=== PATIENT | female | born 1990 | race Caucasian/White ===

== ENCOUNTER 2022-04-10 08:20 | Outpatient (CLI) | payer BC, SELFPAY ==
--- NOTE | 2022-04-10 08:15 | US_ITS ---
Final Report Patient: ATILIO FIELDS Facility:?[facility] Patient ID:?[id number] Site Patient ID:?[id number]. Site :?[id number] Study:?US OB Pelvis -04/10/2022 9:03:13 AM Ordering Physician:?PROVIDER [employer]Prateek Final Report: INDICATION: IVF, dating and viability. TECHNIQUE: Ultrasound OB pelvis transabdominal and transvaginal. Real-time modi-scale imaging of the pelvis was performed. COMPARISON: None. FINDINGS: There is a single intrauterine gestation. The embryo demonstrates a regular cardiac rate measuring 126 beats per minute. The embryo`s crown rump length measurement of 0.6 cm corresponds to a gestational age of 6 weeks 3 days with a sonographic due date of 12/01/2022. There is a normal appearing yolk sac measuring 2.6 mm. There are no gross abnormalities noted within the embryo at this early state of development. The placenta has not yet developed. There is no sign of perigestational hemorrhage. The ovaries are of normal size. There is a right uterine fundal fibroid measuring 1.1 x 1.0 x 0.7 cm. No free fluid in the pelvic cul-de-sac. IMPRESSION: 1. Single viable intrauterine with estimated gestational age of 6 weeks 3 day. 2. Uterine right fundal fibroid measuring 1.1 x 1.0 x 0.7. Dictated by Paulie Stephenson MD @ 04/10/2022 9:59:25 AM (Electronic Signature)
== END 2022-04-10 08:21 | disposition home or self-care (01) ==
LOC: US 08:20
PROVIDERS: Referring Provider Obstetrics & Gynecology Reproductive Endocrinology; Visit Provider Obstetrics & Gynecology Reproductive Endocrinology
DX: O09.811 Supervision of pregnancy resulting from assisted reproductive technology, first trimester (principal); Z3A.01 Less than 8 weeks gestation of pregnancy; O34.11 Maternal care for benign tumor of corpus uteri, first trimester; D25.9 Leiomyoma of uterus, unspecified
CPT/HCPCS: 76817

== ENCOUNTER 2022-04-26 14:51 | Outpatient (CLI) | payer BC, SELFPAY ==
--- NOTE | 2022-04-26 15:00 | CRLHL7_ITS ---
For Patients: As a result of the Cures Act, medical imaging exams and procedure reports are released immediately into your electronic medical record. You may view this report before your referring provider. If you have questions, please contact your health care provider. INDICATION: IVF TECHNIQUE: Ultrasound OB pelvis transvaginal. Real time modi scale imaging of the pelvis was performed. COMPARISON: 04/02/2022 FINDINGS: Sonographic imaging demonstrates a single living intrauterine gestation. The embryo demonstrates a regular cardiac rate measuring 176 beats per minute. The embryo`s crown rump length measurement of 2.3 cm corresponds to a gestational age of 9 weeks 0 days with a sonographic due date of 11/29/2022 . There is a normal appearing yolk sac. There are no gross abnormalities noted within the embryo at this early state of development. The placenta has not yet developed. The gestational sac has a normal appearance and there is no evidence of a perigestational hemorrhage. The amount of fluid within the sac appears appropriate for gestational age. The cervix is closed. 1.7 centimeter anterior right upper uterine segment fibroid. The ovaries are of normal size. There are no suspicious fluid collections noted in the cul-de-sac. IMPRESSION: Viable intrauterine . Gestational age calculated at 9 weeks 0 days with a sonographic due date of 11/29/2022. This compares to the gestational age by OPE of 8 weeks 5 days. No abnormalities seen. Dictated by Jatinder Rico MD @ 04/26/2022 4:21:42 PM (Electronically Signed)
== END 2022-04-26 14:52 | disposition home or self-care (01) ==
LOC: US 14:52
PROVIDERS: Visit Provider Obstetrics & Gynecology Reproductive Endocrinology
DX: O09.811 Supervision of pregnancy resulting from assisted reproductive technology, first trimester (principal); Z3A.09 9 weeks gestation of pregnancy
CPT/HCPCS: 76801

== ENCOUNTER 2022-05-10 14:15 | Outpatient (CLI) | payer BC, SELFPAY | END 2022-05-10 14:16 | disposition home or self-care (01) | LOC: NFLDREF 14:15 | PROVIDERS: Visit Provider Advanced Practice Midwife | DX: Z34.91 Encounter for supervision of normal pregnancy, unspecified, first trimester (principal); Z3A.10 10 weeks gestation of pregnancy | CPT/HCPCS: 87086 ==

== ENCOUNTER 2022-09-12 08:40 | Outpatient (CLI) | payer BC, SELFPAY ==
[2022-09-14 02:59] LABS: Rapid Plasma Reagin (RPR) Non Reactive (Non Reactive)
== END 2022-09-12 08:41 | disposition home or self-care (01) ==
LOC: FRMREF 08:41
PROVIDERS: Visit Provider Registered Nurse
DX: Z34.90 Encounter for supervision of normal pregnancy, unspecified, unspecified trimester (principal)
CPT/HCPCS: 86592

== ENCOUNTER 2022-10-10 08:16 | Outpatient (CLI) | payer BC, SELFPAY ==
--- NOTE | 2022-10-10 08:15 | CRLHL7_ITS ---
For Patients: As a result of the Century Cures Act, medical imaging exams and procedure reports are released immediately into your electronic medical record. You may view this report before your referring provider. If you have questions, please contact your health care provider. INDICATION: Third trimester scan, evaluate growth. Check weight. COMPARISON: 04/26/2022 TECHNIQUE: Real time modi scale imaging of the fetus was performed. FINDINGS: Sonographic imaging demonstrates a single living intrauterine gestation. Fetus demonstrates a regular cardiac rate of 148 beats per minute. Fetus has a vertex position. The placenta lies posteriorly. Amniotic fluid volume appears normal and there is a single deepest vertical pocket: 5.6 cm. The estimated weight is 1958gm which lies at the 33rd %. BPD 64th percentile. HC 36th percentile. AC 34th percentile. FL 29th percentile. The HC/AC ratio measures 1.08 range (0.96-1.12). IMPRESSION: Sonographic gestational age 32 weeks 5 days and sonographic due date 11/30/2022. Good correlation with dates. Normal interval growth. Estimated weight 33rd percentile. Abdominal circumference 34th percentile. Dictated by Jatinder Drake MD @ 10/10/2022 10:53:55 AM (Electronically Signed)
== END 2022-10-10 08:17 | disposition home or self-care (01) ==
LOC: US 08:17
PROVIDERS: Visit Provider Registered Nurse
DX: Z34.93 Encounter for supervision of normal pregnancy, unspecified, third trimester (principal); Z3A.32 32 weeks gestation of pregnancy
CPT/HCPCS: 76816

== ENCOUNTER 2022-10-23 09:46 | Outpatient (CLI) | payer BC, SELFPAY ==
[2022-10-23 11:01] LABS: Alanine Aminotransferase* 17 U/L (4-35); Aspartate Amino Transferase* 25 U/L (12-35); Blood Urea Nitrogen* 7 mg/dL (5-24); Creatinine* 0.7 mg/dL (0.5-1.5); Estimated Glomerular Filt Rate 117 ml/min
[2022-10-23 11:02] LABS: Uric Acid* 4.7 mg/dL (2.2-8.4)
[2022-10-23 11:13] LABS: Total Protein Urine 21 mg/dL
[2022-10-23 11:15] LABS: Creatinine Urine 90.6 mg/dL
== END 2022-10-23 09:47 | disposition home or self-care (01) ==
PROVIDERS: Visit Provider Obstetrics & Gynecology
DX: Z34.93 Encounter for supervision of normal pregnancy, unspecified, third trimester (principal); Z3A.34 34 weeks gestation of pregnancy
CPT/HCPCS: 82565; 82570; 84156; 84450; 84460; 84520; 84550

== ENCOUNTER 2022-10-25 08:13 | Outpatient (CLI) | payer BC, SELFPAY ==
--- NOTE | 2022-10-25 08:15 | CRLHL7_ITS ---
For Patients: As a result of the Century Cures Act, medical imaging exams and procedure reports are released immediately into your electronic medical record. You may view this report before your referring provider. If you have questions, please contact your health care provider. INDICATION: Gestational Hypertension COMPARISON: 10/10/2022 TECHNIQUE: Real time modi scale imaging of the fetus was performed. Without non-stress testing. FINDINGS: Sonographic imaging demonstrates a single living intrauterine gestation. Fetus demonstrates a regular cardiac rate of 145 beats per minute. Fetus has a vertex position. The amniotic fluid volume appears normal and there is a single deepest pocket measurement of 6.1 cm. The fetus was active and demonstrated normal breathing movements. There was normal flexion and extension of the trunk and extremities. IMPRESSION: Normal biophysical profile score of 8 out of 8. Dictated by Jatinder Drake MD @ 10/25/2022 9:55:00 AM (Electronically Signed)
== END 2022-10-25 08:14 | disposition home or self-care (01) ==
LOC: US 08:14
PROVIDERS: Visit Provider Obstetrics & Gynecology
DX: O13.9 Gestational [pregnancy-induced] hypertension without significant proteinuria, unspecified trimester (principal)
CPT/HCPCS: 76819

== ENCOUNTER 2022-10-29 08:14 | Outpatient (CLI) | payer BC, SELFPAY ==
[2022-10-29 09:30] LABS: Alanine Aminotransferase* 19 U/L (4-35); Aspartate Amino Transferase* 26 U/L (12-35); Creatinine* 0.6 mg/dL (0.5-1.5); Estimated Glomerular Filt Rate 121 ml/min
[2022-10-29 09:44] LABS: Total Protein Urine 14 mg/dL
[2022-10-29 09:48] LABS: Creatinine Urine 29.6 mg/dL
== END 2022-10-29 08:15 | disposition home or self-care (01) ==
LOC: NFLDREF 08:14
PROVIDERS: Visit Provider Obstetrics & Gynecology
DX: O13.3 Gestational [pregnancy-induced] hypertension without significant proteinuria, third trimester (principal)
CPT/HCPCS: 82565; 82570; 84156; 84450; 84460

== ENCOUNTER 2022-11-01 13:01 | Outpatient (CLI) | payer BC, SELFPAY ==
--- NOTE | 2022-11-01 13:00 | CRLHL7_ITS ---
For Patients: As a result of the Century Cures Act, medical imaging exams and procedure reports are released immediately into your electronic medical record. You may view this report before your referring provider. If you have questions, please contact your health care provider. INDICATION: GESTATIONAL HYPERTENSION COMPARISON: 10/25/2022 TECHNIQUE: Real time modi scale imaging of the fetus was performed. Without non-stress testing. FINDINGS: Sonographic imaging demonstrates a single living intrauterine gestation. Fetus demonstrates a regular cardiac rate of 163 beats per minute. Fetus has a vertex position. The amniotic fluid volume appears normal and there is a single deepest pocket measurement of 7.3 cm. The fetus was active and demonstrated normal breathing movements. There was normal flexion and extension of the trunk and extremities. IMPRESSION: Normal biophysical profile score of 8 out of 8. Dictated by Jatinder Drake MD @ 11/01/2022 2:48:03 PM (Electronically Signed)
== END 2022-11-01 13:02 | disposition home or self-care (01) ==
LOC: US 13:02
PROVIDERS: Visit Provider Obstetrics & Gynecology
DX: O13.9 Gestational [pregnancy-induced] hypertension without significant proteinuria, unspecified trimester (principal)
CPT/HCPCS: 76819; 87081; 87653

== ENCOUNTER 2022-11-05 08:00 | Outpatient (CLI) | payer BC, SELFPAY ==
[2022-11-05 10:08] LABS: Aspartate Amino Transferase* 33 U/L (12-35); Blood Urea Nitrogen* 8 mg/dL (5-24); Creatinine* 0.6 mg/dL (0.5-1.5); Estimated Glomerular Filt Rate 121 ml/min
[2022-11-05 10:16] LABS: Alanine Aminotransferase* 18 U/L (4-35)
== END 2022-11-05 08:01 | disposition home or self-care (01) ==
LOC: NFLDREF 08:00
PROVIDERS: Obstetrics & Gynecology; Visit Provider Obstetrics & Gynecology
DX: O13.3 Gestational [pregnancy-induced] hypertension without significant proteinuria, third trimester (principal)
CPT/HCPCS: 82565; 84450; 84460; 84520

== ENCOUNTER 2022-11-10 16:29 | Inpatient (IN) | payer BC, SELFPAY ==
[2022-11-10] VITALS (7 sets, daily range): BP systolic 136–140; BP diastolic 80–86; PULSE 81–91; TEMP 36.5; O2SAT 97–98
--- NOTE | 2022-11-10 16:44 | W.PM.LDBA ---
Subjective History of Present Illness Narrative: Patient is being admitted to Labor and Delivery for induction of labor. She is a 32 year old woman at 37 0/7 weeks gestation by IVF dating, PEDRO 12/01/22. H&P by [facility] on 11/08/2022. Specific Issues/Plans : [place] Baby: [place] Gender 1. IVF (r/t PCOS, problems w/ sperm). Taking baby aspirin Level II u/s w/ echo 08/03/2022: Normal echo and anatomy, EFW 73%, post. placenta w/o previa USN for EFW at 32 weeks: EFW 4 lb 5 oz (33%), BPD 64%, HC 36%, AC 34%, FL 29%, SDP 5.6 cm, vtx 2. Pre-eclampsia without severe features Dx with GHTN on 10/23 based on mild ranging BP and P/C of 0.2 PreE labs (10/23): within normal limits, P/C 0.2 PreE labs (10/29): pt rules in for PreE based on P/C ratio of 0.4 testing starting now: Alternating BPP and NST for twice weekly testing. PreE labs weekly BMTZ on 11/01 and 11/02/22. 11/08/22: Vtx. SDP: 4.9 cm. BPP 8/8. EFW 2912 g, 6 lb 7 oz, 44%. BPD 18%, HC 39%, AC 64%, FL 21%. Delivery: 37 weeks 2. Hx of breast augmentation 3. Social anxiety. Much improved w/ therapy 4. Covid positive 09/28/22, s/s 09/28/22, quarantine ends 10/08/22-does not effect next appt. COVID: fully vaccinated and boosted. FLU: Completed at work TDAP: September 26 2022 OB - Problem Based A/P Additional Plan (1) Pre-eclampsia affecting , antepartum: Status: Acute Plan: Stable blood pressures. Term . Unfavorable cervix. Reassuring status with category 1 tracing. Plan Cook catheter placed. Initial attempt was made with digital examination alone, but was unsuccessful. Catheter then was easily placed in aseptic technique using sterile speculum. Intrauterine and intravaginal balloons inflated to 50 mL. Begin Pitocin augmentation at low dose at midnight. Continue Cook catheter for 12 hours unless labor begins. Delivery/Labor/Induction Plan Induction method: Intracervical balloon catheter OB Exam Physical Exam Vital signs: Pulse Ox 98 11/10/22 16:42 Narrative: Physical exam: General: No acute distress Psych: Alert and oriented x3, full affect HEENT: Normocephalic, atraumatic Neck: No cervical adenopathy, no thyromegaly Heart: Regular rate and rhythm, no murmur rub or gallop Lungs: Clear to auscultation bilaterally Abdomen: Soft, nontender, gravid, cephalic lie Lower extremities: No edema or erythema Pelvic exam: Mons normal, clitoris normal, urethral meatus normal. Labia minora and majora normal in appearance bilaterally. Perineum and anus normal appearance. Vaginal introitus normal appearance. Vagina pink and well rugated with scant white discharge. Cervix pink and without lesion. Cervix 1 cm, long, high, posterior, moderate consistency tracing: Baseline 130, accelerations present, no decelerations, moderate variability. Reactive, reassuring NST.
[2022-11-10 17:58] LABS: Basophils Absolute Auto 0.03 K/uL (0.00-0.30); Basophils Percent Auto 0.3 % (0.0-3.0); Eosinophils Absolute Auto 0.07 K/uL (0.00-0.50); Eosinophils Percent Auto 0.7 % (0.0-7.0); Hematocrit 34.3 % (33.0-51.0); Hemoglobin* 12.2 gm/dL (12.0-16.0); Immature Granulocytes Abs Auto 0.05 K/uL (0.00-0.30); Immature Granulocytes Pct Auto 0.5 %; Lymphocytes Percent Auto 19.5 % (20-44); Mean Corpuscular HGB Conc 36 gm/dL (32-36); Mean Corpuscular Hemoglobin 32 pg (26-34); Mean Corpuscular Volume 89 fL (80-100); Monocytes Percent Auto 5.3 % (0.0-11.0); Neutrophils Percent Auto 73.7 % (42.0-72.0); Platelet Count* 174 K/uL (140-440); Red Blood Count 3.86 m/uL (4.00-5.20); Slide Review Reflex No; White Blood Count* 10.76 K/uL (4.50-11.00)
[2022-11-10 18:14] LABS: Alanine Aminotransferase* 18 U/L (4-35); Aspartate Amino Transferase* 21 U/L (12-35); Blood Urea Nitrogen* 8 mg/dL (5-24); Creatinine* 0.6 mg/dL (0.5-1.5); Estimated Glomerular Filt Rate 121 ml/min
[2022-11-10 18:15] LABS: Total Protein Urine 10 mg/dL
[2022-11-10 18:16] LABS: Creatinine Urine 104.5 mg/dL
[2022-11-10 18:37] LABS: SARS PCR* Negative SARS-CoV-2 (Negative)
[2022-11-10] MEDS: hydrOXYzine pamoate 25 MG CAPSULE 100 MG PO (20:39)
[2022-11-10] MEDS: MORPHINE 10 MG/ML inj IM (20:41)
[2022-11-11] VITALS (115 sets, daily range): BP systolic 101–175; BP diastolic 54–102; PULSE 67–112; RESP 16; TEMP 36.6–38.3; O2SAT 92–100; BMI 33.5
[2022-11-11] MEDS: LACTATED RINGERS 1000 ML 1,000 ML 124 ML IV (00:40)
[2022-11-11] MEDS: OXYTOCIN 30 unit/500 ML in NS 30 UNIT/500 ML BAG IVPB (00:41)
[2022-11-11] MEDS: LABETALOL HCL 5 MG/ML inj IVP (08:47)
[2022-11-11] MEDS: LACTATED RINGERS 1000 ML 1,000 ML 115 ML IV (09:15)
--- NOTE | 2022-11-11 09:16 | P.OBPN_ITS ---
Subjective Date Seen: 11/11/22 Narrative: Trinidad is a 32-year-old woman at 37 weeks, 1 day gestation here for induction of labor for indication of preeclampsia. She was without severe features at time of admission. Induction thus far has consisted of Cook catheter with low-dose Pitocin, which was taken off shortly after 8:00 a.m. on 11/11/2022. She continues on Pitocin. She reports not sleeping very well. Discomfort has improved since removal of Cook catheter. She just had 1 severe range blood pressure, and this was treated with labetalol. This is the only 1 within severe range since admission. Objective Exam: Physical exam: Vitals as noted above. General: No acute distress Psych: Alert and oriented x 3, full affect HEENT: Normocephalic, atraumatic Cervical exam: 4 cm, 80%,-2 in deviated to patient's left, soft, bulging bag of water. AROM for clear fluid. Vital Signs: Last Vital Signs Temp 98 F 11/11/22 07:22 Pulse 90 11/11/22 09:03 BP 127/89 11/11/22 09:03 Pulse Ox 97 11/10/22 19:51 Pelvic Exam Dilation (cm): 4 Effacement (%): 80 Station: -3 Contractions Monitor mode: External Contraction Frequency: Q 3 minutes Contraction pattern: Regular Assessment Assessment: early labor Status: Category l Heart Rate Baseline: 130 Director Industrial [employer] Variability: Moderate (6-25) Monitor Accelerations: Present Tracing Comments: Reassuring tracing Labor Progress: Progressing well through early labor, now with favorable cervix. Maternal Status: Still without diagnosis of severe preeclampsia, blood blood pressures have been increasing. Plan Plan: Continue Pitocin augmentation. If she experiences another severe elevation of blood pressure, we will begin magnesium sulfate for seizure prophylaxis. HELLP labs have been ordered. Continuous monitoring.
[2022-11-11 10:37] LABS: Hematocrit 35.1 % (33.0-51.0); Hemoglobin* 12.1 gm/dL (12.0-16.0); Mean Corpuscular HGB Conc 35 gm/dL (32-36); Mean Corpuscular Hemoglobin 31 pg (26-34); Mean Corpuscular Volume 90 fL (80-100); Platelet Count* 169 K/uL (140-440); Red Blood Count 3.92 m/uL (4.00-5.20); White Blood Count* 13.86 K/uL (4.50-11.00)
[2022-11-11 10:47] LABS: Slide Review Reflex No
[2022-11-11 11:25] LABS: Alanine Aminotransferase* 18 U/L (4-35); Aspartate Amino Transferase* 27 U/L (12-35); Blood Urea Nitrogen* 7 mg/dL (5-24); Creatinine* 0.7 mg/dL (0.5-1.5); Estimated Glomerular Filt Rate 117 ml/min
[2022-11-11] MEDS: ROPIVACAINE 0.2 % PF 10 ML INJ 20 MG EPIDURAL (13:17)
[2022-11-11] MEDS: LIDOCAINE 2% (PF) 5 ML VIAL EPIDURAL (13:17)
[2022-11-11] MEDS: ROPIVACAINE 0.2% 100 ml 100 ML 12 MG EPIDURAL ×2 (13:19→21:30)
--- NOTE | 2022-11-11 13:25 | PM.ANBPRC ---
[facility] Medical History (Updated 11/10/22 @ 20:29 by Amy Avery MD) Conceived by in vitro fertilization History of hysterosalpingogram History of migraine headaches Surgical History History of breast augmentation (2013) Family History Father Coronary artery disease Diabetes Aunt Diabetes Family/Other Diabetes Social History (Updated 05/10/22 @ 17:49 by Angela Trujillo CNM) Narrative: Non-smoker, quit 2020 - Ivan Smoking Status: Never smoker Do you use any of these nicotine containing products: Smokeless Tobacco Meds Home Medications and Allergies Home Medications Medication Instructions Recorded Confirmed Type aspirin 81 mg tablet,delayed 81 mg PO QDAY 05/10/22 11/10/22 History release omega 9-iaa-sdq-fish oil 100 cap PO 05/10/22 11/08/22 History mg-160 mg-1,000 mg capsule (Fish Oil) loratadine 10 mg tablet (Claritin) 10 mg PO QDAY 06/07/22 11/10/22 History 103-folic acid 400 tab PO 06/07/22 11/08/22 History mcg-omeg3 32.5 mg-dha-fish oil chew tablet ( with DHA and Folic Acid) Allergies Allergy/AdvReac Type Severity Reaction Status Date / Time No Known Allergies Allergy Unverified 11/08/22 15:49 Results Labs Labs: Laboratory Results - last 24 hr 11/10/22 11/10/22 11/10/22 17:39 17:43 17:43 WBC 10.76 RBC 3.86 L Hgb 12.2 Hct 34.3 MCV 89 MCH 32 MCHC 36 RDW Coeff of Domitila 13.0 Plt Count 174 Neut % (Auto) 73.7 H Lymph % (Auto) 19.5 L Phillips % (Auto) 5.3 Eos % (Auto) 0.7 Baso % (Auto) 0.3 Neut # (Auto) 7.90 H Lymph # (Auto) 2.10 Phillips # (Auto) 0.60 Eos # (Auto) 0.07 Baso # (Auto) 0.03 BUN Creatinine Estimated GFR AST ALT Urine Creatinine 104.5 Protein/Creatinin Ratio 0.00 Urine Total Protein 10 SARS-CoV-2 (PCR) Blood Type B Positive Antibody Screen NEGATIVE 11/10/22 11/10/22 11/11/22 17:43 17:58 10:31 WBC 13.86 H RBC 3.92 L Hgb 12.1 Hct 35.1 MCV 90 MCH 31 MCHC 35 RDW Coeff of Domitila Plt Count 169 Neut % (Auto) Lymph % (Auto) Phillips % (Auto) Eos % (Auto) Baso % (Auto) Neut # (Auto) Lymph # (Auto) Phillips # (Auto) Eos # (Auto) Baso # (Auto) BUN 8 Creatinine 0.6 Estimated GFR 121 AST 21 ALT 18 Urine Creatinine Protein/Creatinin Ratio Urine Total Protein SARS-CoV-2 (PCR) Negative SARS-CoV-2 Blood Type Antibody Screen 11/11/22 10:31 WBC RBC Hgb Hct MCV MCH MCHC RDW Coeff of Domitila Plt Count Neut % (Auto) Lymph % (Auto) Phillips % (Auto) Eos % (Auto) Baso % (Auto) Neut # (Auto) Lymph # (Auto) Phillips # (Auto) Eos # (Auto) Baso # (Auto) BUN 7 Creatinine 0.7 Estimated GFR 117 AST 27 ALT 18 Urine Creatinine Protein/Creatinin Ratio Urine Total Protein SARS-CoV-2 (PCR) Blood Type Antibody Screen Vital Signs Vital Signs: Last Vital Signs Temp 98.6 F 11/11/22 12:15 Pulse 84 11/11/22 13:23 BP 132/69 11/11/22 13:23 Pulse Ox 94 11/11/22 13:24 Weight: 94.432 kg Height: 162.56 cm Anesthesia Procedures Epidural Insertion Patient Location: OB Start Time: 12:45 Stop Time: 13:26 Start Date: 11/11/22 Stop Date: 11/11/22 Reason for Block: procedure for pain Patient Position: sitting Performed By: Sang Dennis Preanesthetic Checklist: IV checked, risks and benefits discussed, surgical consent, monitors and equipment checked, pre-op evaluation, timeout performed and anesthesia consent Prep: chlorhexidine gluconate Monitoring: blood pressure monitoring, continuous pulse oximetry and heart rate Approach: midline Vertebral Space: lumbar (1-5) Epidural Technique: LYNNE air Needle Type: Tuohy needle Injection Technique: continuous catheter Needle gauge: 17 Needle Length (cm): 10 cm Needle Insertion Depth (cm): 7 Catheter Gauge: 19 Catheter Type: multi-orifice Catheter at skin depth (cm): 13 Test Dose Result: negative and lidocaine 1.5% with epinephrine 1 to 200,000
[2022-11-11] MEDS: ONDANSETRON 2 MG/ML inj 4 MG IV (18:03)
--- NOTE | 2022-11-11 18:30 | P.OBPN_ITS ---
Subjective Time Seen by Provider: 16:00 Date Seen: 11/11/22 Narrative: Trinidad is a 32-year-old woman at 37 weeks, 1 day gestation here for induction of labor for indication of preeclampsia. She was without severe features at time of admission. Induction thus far has consisted of Cook catheter with low-dose Pitocin, which was taken off shortly after 8:00 a.m. on 11/11/2022. She had AROM for clear fluid around 0900. She continues on Pitocin. She has had epidural since my last exam. RN reports that she is sluggish and perhaps feeling a little warm. Objective Exam: Physical exam: Vitals as noted above. General: No acute distress, shivering a little Psych: appears sleepy, responds to questions HEENT: Normocephalic, atraumatic Vital Signs: Last Vital Signs Temp 99.1 F 11/11/22 17:30 Pulse 81 11/11/22 18:03 BP 101/61 11/11/22 18:03 Pulse Ox 99 11/11/22 18:28 Pelvic Exam Dilation (cm): 8 Effacement (%): 100 Station: 0 Comments: deviated to patient's left Contractions Monitor mode: External Contraction Frequency: uncertain Pitocin Rate (mU/min): 20 Assessment Assessment: active labor Status: Category l Heart Rate Baseline: 150 [employer] Supervisor Variability: Moderate (6-25) Monitor Accelerations: Present Tracing Comments: Reassuring tracing Labor Progress: Transitional phase of active labor. Maternal Status: Still without diagnosis of severe preeclampsia; normal BP since epidural and normal HELLP labs this AM. Temperatures still within normal range. Increasing baseline. Plan Plan: Continue Pitocin augmentation. Repeat exam in 2 hours. If she experiences another severe elevation of blood pressure, we will begin magnesium sulfate for seizure prophylaxis. With elevated temperature, will treat empiricaly for chorioamnionitis. Continuous monitoring.
[2022-11-12] VITALS (42 sets, daily range): BP systolic 97–156; BP diastolic 61–86; PULSE 68–95; RESP 14–17; TEMP 36.3–37; O2SAT 95–99
[2022-11-12] MEDS: LACTATED RINGERS 1000 ML 1,000 ML 999 ML IV ×2 (00:58→05:35)
--- NOTE | 2022-11-12 01:08 | PM.OBPNL ---
Subjective Time Seen by Provider: 01:08 Date Seen: 11/12/22 Narrative: Trinidad is a 32-year-old woman at 37 weeks, 2 days gestation here for induction of labor for indication of preeclampsia. She was without severe features at time of admission. Induction thus far has consisted of Cook catheter with low-dose Pitocin, which was taken off shortly after 8:00 a.m. on 11/11/2022. She had AROM for clear fluid around 0900. She continues on Pitocin. She has had epidural. She has been pushing since between 930 and 10:00 p.m.. Objective Exam: Physical exam: Vitals as noted above. General: Appears tired and pained HEENT: Normocephalic, atraumatic Vital Signs: Last Vital Signs Temp 98.6 F 11/11/22 19:41 Pulse 87 11/12/22 01:03 Resp 16 11/11/22 19:41 BP 124/67 11/12/22 01:03 Pulse Ox 100 11/11/22 20:08 Pelvic Exam Dilation (cm): 10 Effacement (%): 100 Station: +2 Comments: Adequate pelvis. Suspect OA orientation, consistent with ultrasound at bedside. Contractions Monitor mode: External Contraction Frequency: uncertain Contraction pattern: Regular Pitocin Rate (mU/min): 20 Assessment Assessment: other (Arrest of descent) Station: +2 Status: Category l Heart Rate Baseline: 140 Fci Variability: Moderate (6-25) Monitor Accelerations: Present Tracing Comments: Reassuring tracing Labor Progress: Arrest of descent Maternal Status: Preeclampsia without severe features; normal BP since epidural and normal HELLP labs this AM. Plan Plan: We discussed options, including continued pushing efforts, vacuum assisted vaginal delivery, and primary . Of these, she prefers delivery. We discussed risks of , including bleeding/hemorrhage with risk of blood transfusion, infection in uterus, pelvis, or incision, damage to internal organs, including cervical laceration, uterine scarring and effect on future pregnancies, thromboembolism, and the likely postoperative restrictions and precautions. We discussed likely differences in recovery. Consent form was reviewed with and signed by patient. Start Pitocin augmentation now. Cefazolin 2 g and azithromycin 500 mg IV for preoperative prophylaxis.
[2022-11-12] MEDS: AZITHROMYCIN 500 MG in 0.9 % SODIUM CHLORIDE 250 ml 250 ML 255 MG IVPB (01:10)
[2022-11-12] MEDS: CEFAZOLIN 2 GM INJ IVP (01:55)
--- NOTE | 2022-11-12 02:32 | SUR.OPER ---
PATIENT BROUGHT TO OR #5 PER CART.? Patient positioned supine on OR #5 bed.? The perioperative?team supported arms bilaterally on arm boards. Final approval of positioning by surgeon. PT. COMES INTO OR #5 WITH A PATENT VEGAS CATHETER ALREADY IN PLACE FROM OB FLOOR.
--- NOTE | 2022-11-12 02:54 | PM.OBPRCCS ---
Procedure Pre-op/Post-op diagnoses: Pre-Op/Post-Op Diagnoses Operation Date: 11/12/22 02:15 <No data on this case meets the specified criteria> Procedure Done: Global Procedure Details: Procedures Operation Date: 11/12/22 02:15 Actual Procedure Side Surgeon p Section Amy Avery MD Narrative: PREOPERATIVE DIAGNOSIS: 37 weeks, 2 days gestation Preeclampsia without severe features Arrest of descent POSTOPERATIVE DIAGNOSIS: 37 weeks, 2 days gestation Preeclampsia without severe features Arrest of descent PROCEDURE: Primary low-transverse section SURGEON: Amy Avery MD ANESTHESIA: Epidural IV FLUIDS: 700 mL crystalloid QBL: 703 mL FINDINGS: 1. Male , cephalic 0P presentation, Apgars of 9 and 9, weight pending at time of this dictation 2. Normal appearance to uterus, bilateral tubes and ovaries. COMPLICATIONS: None PROCEDURE IN DETAIL: Patient was taken to the operating room with IV running. She received cefazolin in preoperative prophylaxis. Epidural anesthesia had previously been administered. Vaginal exam was performed, and head was manually elevated upward in the patient's pelvis. Becerril catheter was previously inserted. She was prepped and draped in the usual sterile fashion. Anesthesia was tested and found to be adequate. A low-transverse skin incision was made with a scalpel and carried through to the underlying layer of fascia with the scalpel. Incision was widened bluntly. The fascia was nicked in the midline with a scalpel, and this incision was extended laterally with scissors. The rectus muscles were in the midline and were slightly dissected off the superior edge the incision sharply.. Peritoneum was identified and entered bluntly. Scissors was used to widen this opening laterally. Bro O retractor was inserted and tightened down, providing excellent visualization of the lower uterine segment. The bladder reflection was found to be well below the planned site for hysterotomy. Low-transverse uterine incision was made with a scalpel. Incision was widened bluntly. The 's head was grasped through the hysterotomy and delivered with the help of fundal pressure. The remainder of the body delivered without incident. Cord was clamped and cut after 30 seconds. was handed off to attending nurses. The placenta was delivered with gentle traction on the cord. The uterus was cleaned of all clots and debris with the dry lap pad. There was a hysterotomy extension downward on the patient's right side. The edges of this were grasped with a ring forcep and this was reapproximated with 0 Vicryl in a running fashion, followed by the remainder of the hysterotomy. The majority of the hysterotomy required imbricating sutures of 0 Vicryl to obtain hemostasis. The uterus was exteriorized for portions of this hysterotomy repair. The adnexa were examined and noted to be normal in appearance. The uterus was returned to the abdomen. The Bro O retractor was removed. The hysterotomy was reexamined and additional [id number]-lv-[id number] sutures were used to obtain hemostasis in the midportion of the hysterotomy. [place] hemostatic agent was a applied over the lower uterine segment and over the hysterotomy extension. The peritoneum was reapproximated with 2 0 Vicryl in a running fashion. The rectus muscles were examined and found to be hemostatic. The fascia was reapproximated with 0 Vicryl in a running fashion. Subcutaneous fat was irrigated and Bovie used on oozing vessels. The subcutaneous fat was reapproximated with 2 0 plain gut suture in an interrupted fashion. The skin was closed with a subcuticular stitch of 4-0 Monocryl. Surgical glue was applied above this. Patient tolerated procedure well was taken to recovery area in stable condition.
[2022-11-12] MEDS: LACTATED RINGERS 1000 ML 1,000 ML 125 ML IV (03:10)
--- NOTE | 2022-11-12 03:12 | W.ANESCHARGE ---
Anesthesia Charges Start Date/Time Anesthesia Start Date: 11/12/22 Anesthesia Start Time: 01:42 Stop Date/Time Anesthesia Stop Date: 11/12/22 Anesthesia Stop Time: 03:09 Summary Emergency: Yes
[2022-11-12] MEDS: ACETAMINOPHEN 500 MG TABLET 1000 MG PO (05:51)
[2022-11-12 07:40] LABS: Alanine Aminotransferase* 16 U/L (4-35); Aspartate Amino Transferase* 24 U/L (12-35); Blood Urea Nitrogen* 8 mg/dL (5-24)
[2022-11-12 07:55] LABS: Creatinine* 0.6 mg/dL (0.5-1.5); Est. Creatinine Clearance* 124.85; Estimated Glomerular Filt Rate 121 ml/min
[2022-11-12] MEDS: KETOROLAC 30 MG/ML inj IVP ×3 (08:13→20:34)
[2022-11-12] MEDS: DOCUSATE SODIUM 100 MG CAPSULE PO (08:26)
[2022-11-12 09:57] LABS: Hematocrit 28.1 % (33.0-51.0); Hemoglobin* 9.6 gm/dL (12.0-16.0); Mean Corpuscular HGB Conc 34 gm/dL (32-36); Mean Corpuscular Hemoglobin 31 pg (26-34); Mean Corpuscular Volume 92 fL (80-100); Platelet Count* 157 K/uL (140-440); Red Blood Count 3.07 m/uL (4.00-5.20)
[2022-11-12 10:35] LABS: Slide Review Reflex Yes; White Blood Count* 26.78 K/uL (4.50-11.00)
[2022-11-12 10:36] LABS: Slide Review Acceptable Review (Acceptable)
[2022-11-13] VITALS (9 sets, daily range): BP systolic 115–135; BP diastolic 76–89; PULSE 77–97; RESP 14–16; TEMP 36.5–36.8; O2SAT 96–98
[2022-11-13] MEDS: KETOROLAC 30 MG/ML inj IVP ×2 (02:41→08:06)
[2022-11-13 05:23] LABS: Hemoglobin* 8.3 gm/dL (12.0-16.0)
[2022-11-13] MEDS: FERROUS SULFATE 325 MG TABLET PO (08:06)
[2022-11-13] MEDS: DOCUSATE SODIUM 100 MG CAPSULE PO (08:06)
--- NOTE | 2022-11-13 09:40 | P.OBPN_ITS ---
OB - PN: A/P Assessment and Plan (1) Pre-eclampsia affecting , antepartum: Status: Acute (2) Status post delivery: Status: Acute (3) state: Status: Acute (4) Lactating mother: Status: Acute (5) Acute anemia: Status: Acute Plan Assessment/Plan G 1 P 1 status post uncomplicated primary . Lactating Mother Acute Anemia Pre-eclampsia with out severe features 1. ?Continue routine PP cares 2. ?. ?May see if desired 3. ?Anticipate discharge home tomorrow 4. ?Acute anemia. ?Iron supplement ordered 5. Continue to monitor blood pressures and for signs/symptoms of severe pre-e clampsia. Return to clinic in 1 week after discharge for blood pressure check. Plan day: 1 Plan: routine postop care OB - PN: Subj Subjective Time Seen by Provider: 09:40 Date Seen: 11/13/22 Interval history: Subjective: Trinidad is a 32 y.o. G1 now P1 who was admitted to [facility] & [facility] for IOL r/t pre-eclampsia with out severe features. ?She had an uncomplicated after arrest of descent.. ? The patient feels well. ?The pain is well controlled with current medications. ?She has no new complaints. ?She is breast feeding and reports things are going well.? the patient has done well.? Vitals have been stable and blood pressures have been with in normal limits.? She has remained afebrile.? Has a go od appetite, is tolerating a general diet. ?She is voiding without difficulty.? She is passing gas and has not had a bowel movement.? She is ambulating and denies any dizziness.? Has Small amount of rubra lochia with only occasional small clots.??At time of visit, Trinidad sitting upright in the chair feeding her baby boy with her supportive at bedside. RN confirmed regular heart rate and rhythm, lungs clear to auscultation bilaterally, uterus firm, 1 below umbilicus, and dressing dry and intact. Trinidad requested to have dressing removed after she gets up for her shower today. She has been taking iron supplements today and is asymptomatic for anemia, no dizziness, lightheadedness, nausea or shortness of breath. She hopes to go home tomorrow morning if possible. Patient comments: no complaints, pain well controlled, tolerating diet and flatus present [place] infant status: and doing well [place] feeding status: exclusively OB - PN: Obj Exam Physical Exam: Vital signs: Temp Pulse Resp BP Pulse Ox O2 Del Method 98.0 F 87 16 134/88 98 11/13/22 08:10 11/13/22 08:10 11/13/22 08:10 11/13/22 08:10 11/13/22 08:10 11/13/22 08:10 Narrative: Objective: VSS. ?Afebrile GENERAL APPEARANCE: ?normal affect, alert, no distress MOOD: ?appropriate HEENT: normocephalic, neck supple, full ROM CHEST: ?Symmetrical chest wall movement. ?Normal respiratory effort. ?Clear to auscultation per CONVERTER SUPERVISOR: ?regular rate and rhythm Per RN ABDOMEN: ?soft, non-tender. Uterine fundus is firm, 1 under Umbilicus, Midline and is appropriate for the stage of recovery. ?Bowel sounds present. per RN EXTREMITIES: ?normal and no edema SKIN: warm, dry. ?Dressing on. ?No signs of infection noted. per RN Urinary Catheter Management: Urethral: Cath placed during this visit: yes, but has since been removed by the nurse Reason for continuing: not indwelling catheter Insertion date: 11/11/22 Removal date: 11/12/22 Removal time: 14:50 OB - PN: Obj Data Labs Labs: Laboratory Results - last 24 hr 11/12/22 11/13/22 07:09 05:20 WBC 26.78 H* RBC 3.07 L Hgb 9.6 L 8.3 L Hct 28.1 L MCV 92 MCH 31 MCHC 34 Plt Count 157 Diff Slide Review Acceptable Review
[2022-11-13] MEDS: ACETAMINOPHEN 500 MG TABLET 1000 MG PO ×2 (11:53→17:53)
[2022-11-13] MEDS: IBUPROFEN 600 MG TABLET PO ×2 (15:06→20:42)
[2022-11-14] MEDS: ACETAMINOPHEN 500 MG TABLET 1000 MG PO ×2 (00:10→05:59)
[2022-11-14] MEDS: IBUPROFEN 600 MG TABLET PO ×2 (03:28→08:55)
[2022-11-14 03:33] VITALS: BP 132/88
[2022-11-14 07:31] LABS: Basophils Absolute Auto 0.02 K/uL (0.00-0.30); Basophils Percent Auto 0.2 % (0.0-3.0); Eosinophils Absolute Auto 0.16 K/uL (0.00-0.50); Eosinophils Percent Auto 1.6 % (0.0-7.0); Hematocrit 25.5 % (33.0-51.0); Hemoglobin* 8.4 gm/dL (12.0-16.0); Immature Granulocytes Abs Auto 0.06 K/uL (0.00-0.30); Immature Granulocytes Pct Auto 0.6 %; Lymphocytes Absolute Auto 2.14 K/uL (0.90-2.90); Mean Corpuscular HGB Conc 33 gm/dL (32-36); Mean Corpuscular Hemoglobin 31 pg (26-34); Mean Corpuscular Volume 95 fL (80-100); Monocytes Percent Auto 5.4 % (0.0-11.0); Neutrophils Absolute Auto 6.82 K/uL (1.7-7.0); Neutrophils Percent Auto 70.2 % (42.0-72.0); Platelet Count* 152 K/uL (140-440); RDW Coefficient of Variation % 13.7 % (11.5-15.5); Red Blood Count 2.68 m/uL (4.00-5.20); White Blood Count* 9.73 K/uL (4.50-11.00)
--- NOTE | 2022-11-14 07:39 | P.DS_ITS ---
DS: Providers Provider Date Seen: 11/14/22 Date of admission: 11/10/22 16:29 Primary care physician: Not a Local Provider Admitting Clinician: Amy Avery MD Attending Physician on discharge: Amy Avery MD Date of Discharge: 11/14/22 DS: Diagnosis Discharge Diagnosis (1) Lactating mother: Status: Acute (2) Status post delivery: Status: Acute (3) Acute anemia: Status: Acute Exam Narrative: Exam Narrative: GENERAL APPEARANCE:? normal affect, alert, no distress? MOOD:? appropriate? CHEST:? clear to auscultation and percussion? HEART:? regular rate and rhythm? ABDOMEN:? soft, non-tender the uterine fundus is 2 cm Below Umbilicus, Midline and is appropriate for the stage of recovery.?Incision well approximated without discharge, redness, or warmth. PERINEUM:? intact without edema.? EXTREMITIES:? normal and no edema? Patient has no complaints? No active bleeding?? Doing well? She is requesting discharge home.? Const: Vital Signs, click to edit/add: Vital Signs - 24 hr 11/13/22 08:10 11/13/22 12:03 11/13/22 16:30 Temperature 98.0 F 97.7 F 97.9 F Pulse Rate [Pulse Oximeter] 87 85 84 Respiratory Rate 16 16 16 Blood Pressure [Ri ght Arm] 134/88 135/88 131/82 Pulse Oximetry 98 98 97 Oxygen Delivery Me thod Room Air Room Air Room Air 11/13/22 20:44 11/13/22 22:55 11/14/22 03:33 Temperature 97.7 F Pulse Rate [Pulse Oximeter] 97 Respiratory Rate 16 Blood Pressure [Ri ght Arm] 115/76 127/84 132/88 Pulse Oximetry 96 Oxygen Delivery Me thod Room Air Documenting provider has reviewed patient's vital signs: yes DS: Data Data Completed and Pending Labs on day of discharge: Labs from last 24 hours 11/14/22 07:20 WBC Pending RBC Pending Hgb Pending Hct Pending MCV Pending MCH Pending MCHC Pending Plt Count Pending Neut % (Auto) Pending Lymph % (Auto) Pending [place] % (Auto) Pending Eos % (Auto) Pending Baso % (Auto) Pending Neut # (Auto) Pending Lymph # (Auto) Pending [place] # (Auto) Pending Eos # (Auto) Pending Baso # (Auto) Pending OB - DS: Summary Hospital Course Hospital Course: Patient is a 32year old, G 1 now P 1? admitted on 11/10/22 at 37 Weeks, 2 Days gestation for IOL for pre-eclampsia without severe features.? She had an uncomplicated delivery.? She delivered a viable male , Willem.? She is breast feeding and reports things are well.? the patient has done well.? Her pain is well controlled with current medications.? She has no new complaints.? Vitals have been stable. She has remained afebrile. Her WBC was elevated after delivery so a repeat CBC was ordered for this am. She denies symptoms of a fever. She is voiding without difficulty. She is passing gas and has not had a bowel movement. She is ambulating and denies any dizziness. She is unsure what she is planning for control. She has not used anything for a number of years related to infertility. She ultimately doesn't want to use hormonal control again but may consider it in the short term. Is also considering using just condoms. Encouraged her to wait at least 1 year between pregnancies to allow her body to heal. Peripartum Data Procedures: Procedures Operation Date: 11/12/22 02:15 Actual Procedure Side Surgeon p Section Amy Avery MD complications: none [place] Infant Gender: Male Discharge Plan: Home Status at Discharge Functional status at discharge: independent ambulation Overall status at discharge: patient is progressing back to baseline Time Spent with Patient Time attestation: Total time spent providing and/or coordinating discharge services: Discharge Plan Discharge Disposition: Home, Self-Care Date of Admission: 11/10/22 16:29 Attending Provider on Discharge: Xiao Jewell Primary Care Provider: Provider,Not a Local Condition: Stable Anticipated Discharge Date/Time: 11/14/22 17:54 Discharge Medications: New docusate sodium 100 mg Capsule 100 mg PO DAILY Qty: 90 0RF Rx Instructions: Take 1-2 tablets daily as needed for constipation. ferrous sulfate 325 mg (65 mg iron) Tablet 325 mg PO DAILYWM Qty: 60 0RF ibuprofen 600 mg Tablet 600 mg PO Q6H PRN (Reason: Pain) Qty: 90 0RF oxycodone 5 mg Tablet 5 - 10 mg PO Q4H PRN (Reason: Pain) Qty: 10 0RF Continued Fish Oil 100-160-1,000 mg capsule 1 cap PO DAILY loratadine [Claritin] 10 mg tablet 10 mg PO QDAY with DHA-Folic Acid 400-32.5 mcg-mg tablet,chewable 1 tab PO DAILY Discontinued aspirin 81 mg tablet,delayed release (DR/EC) 81 mg PO QDAY Discharge Orders: Discharge Order (Routine); Ordered 11/14/22 Ordered By: Xiao Jewell Patient Education: OB Over the Counter Medication Information, OB /Breast Feeding Additional Instructions: Discharge instructions were reviewed with the patient including signs and symptoms of infection and home going medications? ?? Activity restrictions:? Lifting Restrictions: 20 pounds for 6 weeks? No high-impact or core exercises for 6 weeks.?? No not submerge incision under water X 2 weeks?? Nothing vaginally for 6 weeks: no tampons or intercourse? Do not drive while taking narcotic pain medication(s)? Off Work or School for 8 weeks? ? Symptoms to report to doctor:? -Bleeding that saturates more than one pad per hour? -Passing clots larger than the size of a golf ball? -Pain not relieved by prescribed medication? -Fever above 100.4 degrees Fahrenheit? -A foul vaginal odor? -Difficulty in emotions, mood and functions? -Thoughts of hurting yourself and/or ? -Painful, reddened area in your breast? -Any drainage, redness or tenderness in your IV/epidural site? -Severe headache that doesn't improve after taking medications? -Changes in vision, including temporary loss of vision, blurred vision, and/or light sensitivity? -Upper abdominal pain (usually under ribs on the right side)? -Decrease in urination or painful, frequent urinating? -Chest pain? -Shortness of breath? -Tenderness or pain with redness and/swelling in the calf(s) of your leg? Follow up visits:?? 1. 1 week visit:? incision and blood pressure check.? 2. 2-week visit: discuss infant feeding/care concerns, review control options and screen for anxiety/depression.? 3. 6-week visit for an annual exam.? ?? consultation services are available to all mothers and babies for the first year after delivery.? To make an appointment, please call [phone].? Follow Up Appointments: [facility] [Provider Group] Amy Avery MD [Staff Physician] - (2 and 6 weeks. Please call to schedule) Provider,Not a Local [Primary Care Provider] - Forms: MyHealth Info Instructions
[2022-11-14 07:40] LABS: Slide Review Reflex No
[2022-11-14] MEDS: DOCUSATE SODIUM 100 MG CAPSULE PO (08:55)
[2022-11-14] MEDS: FERROUS SULFATE 325 MG TABLET PO (08:55)
[2022-11-14 08:57] VITALS: BP 157/93; PULSE 96; RESP 18; TEMP 36.4; O2SAT 96
[2022-11-14 09:17] VITALS: BP 151/95
[2022-11-14 10:03] LABS: INR 0.91 (0.91-1.10); Prothrombin Time 12.8 Seconds
[2022-11-14 10:04] LABS: Alanine Aminotransferase* 17 U/L (4-35); Aspartate Amino Transferase* 27 U/L (12-35); Blood Urea Nitrogen* 9 mg/dL (5-24); Creatinine* 0.7 mg/dL (0.5-1.5); Est. Creatinine Clearance* 107.01; Estimated Glomerular Filt Rate 117 ml/min
[2022-11-14 10:29] LABS: Fibrinogen* 511 mg/dL (200-450)
[2022-11-14 11:14] VITALS: BP 131/87
== END 2022-11-14 11:20 | disposition home or self-care (01) | DRG 540 ==
PROVIDERS: Advanced Practice Midwife; Admitting Provider Obstetrics & Gynecology; Visit Provider Obstetrics & Gynecology
PROC: 10D00Z1 Extraction of Products of Conception, Low, Open Approach (ICD-10-PCS; CPT 59514; principal; 2022-11-12 02:00)
DX: O14.04 Mild to moderate pre-eclampsia, complicating childbirth (principal); O99.02 Anemia complicating childbirth; D62 Acute posthemorrhagic anemia; O32.4XX0 Maternal care for high head at term, not applicable or unspecified; O82 Encounter for cesarean delivery without indication; Z3A.37 37 weeks gestation of pregnancy; Z37.0 Single live birth
CPT/HCPCS: 01967; 01968; 36415; 76815; 76816; 76819; 82565; 82570; 84156; 84450; 84460; 84520; 85018; 85025; 85027; 85384; 85610; 86850; 86900; 86901; 87635; 88307; 99140; A9270; J0456; J0690; J1100; J1885; J2270; J2274; J2370; J2405; J2590; J2795; J3010; J7050; J7120

== ENCOUNTER 2024-07-02 08:45 | Outpatient (REF) | payer BC, SELFPAY ==
[2024-07-02 09:12] LABS: HCG Quantitative* 222.38 mIU/mL
== END 2024-07-02 08:46 | disposition home or self-care (01) ==
LOC: NPINS 08:45
PROVIDERS: PCP Registered Nurse; Visit Provider Obstetrics & Gynecology Reproductive Endocrinology
DX: Z32.00 Encounter for pregnancy test, result unknown (principal)
CPT/HCPCS: 84702

== ENCOUNTER 2024-07-06 09:38 | Outpatient (REF) | payer BC, SELFPAY ==
--- OUTSIDE RECORDS SUMMARY | 2024-07-06 09:42 | XMS_ITS | Clinical Summary ---
Author Organization [facility] Address [address] [place] [address] Care Team Providers Care Wool Hat Flanger Name Role Phone Unavailable Primary Care Provider Unavailabl e Social History Tobacco Use Types Packs/Day Years Used Date Smoking Tobacco: Never Assessed Adolescent Education Answer Date Record ed Getting School Help Needed Not on file 07/06 Sex and Gender Information Value Date Recorded Sex Assigned at Female 07/09/2022 9:15 AM CDT Gender Identity Female 07/09/2022 9:15 AM CDT Sexual Orientation Straight 07/09/2022 9: 15 AM CDT Last Filed Vital Signs Vital Sign Reading Time Taken Comments Blood Pressure 132/83 07/06/2022 9:06 AM CDT Pulse - - Temperature - - Respiratory Rate - - Oxygen Saturation - - Inhaled Oxygen Concentration - - Weight - - Height - - Body Mass Index - - Plan of Treatment Health Maintenance Due Date Last Done Comments ADVANCE CARE PLANNING 1989 ANNUAL REVIEW OF HM ORDERS 1989 YEARLY PREVENTIVE VISIT 1989 HIV SCREENING 2004 HEPATITIS C SCREENING 2007 HPV IMMUNIZATION (3 - 3-dose series) 11/26/2010 07/31/2010, 05/26/2010 DTAP/TDAP/TD IMMUNIZATION (7 - Td or Tdap) 05/25/2012 05/25/2002, 04/29/1995, 01/22/1992, Additional history exists PHQ-2 (once per calendar year) 2023 COVID-19 Vaccine ( season) 2024 09/27/2021, 01/26/2021, 12/30/2020 INFLUENZA VACCINE (#1) 2024 2, 07/26/2021, 07/26/2020, Additional history exists PAP 12/06/2024 12/06/2021, 12/06/2021 HEPATITIS B IMMUNIZATION Completed 004, 07/24/2002, 07/24/2002, Additional history exists MENINGITIS IMMUNIZATION Completed 06/03/2008 Pneumococcal Vaccine: Pediatrics (0 to 5 Years) and At-Risk Patients (6 to 64 Years) Aged Out No longer eligible based on patient's age to complete this topic RSV MONOCLONAL ANTIBODY Aged Out No l onger eligible based on patient's age to complete this topic
--- OUTSIDE RECORDS SUMMARY | 2024-07-06 09:42 | XMS_ITS | Clinical Summary ---
Author Organization [facility] Address [place], [place] [address] Care Team Providers Care Manager Shipping Name Role Phone Pcp, No Primary Care Provider Unavailabl e Allergies No known active allergies Medications Medication Sig Dispensed Refills Start Date End Date Status metFORMIN (GLUCOPHAGE XR) 500 mg Extended-Release tabletIndications:[place] ycystic ovarian syndrome,Class 1 obesity with body mass index (BMI) of 31.0 to 31.9 in adult, unspecified obesity type, unspecified whether serious comorbidity present Take 4 Tablets (2,000 mg) by mouth once daily. 360 Tablet 1 01/24/2024 Active Active Problems Problem Noted Date Diagnosed Date Lactose intolerance Dysmenorrhea Allergic rhinitis Immunizations Name Administration Dates Next Due DT (Age < 7 years) 05/25/2002 DTP 04/29/1995, 2,12/11/1990,03/12,01/13/1990 DTaP 04/29/1995, 2,12/11/1990,03/12,01/13/1990 Hepatitis A (Adult) 02/18/2010 Hepatitis B (Peds) 01/25/2004,07/24/2002, 002 Hepatitis B, Unspecified 07/24/2002,05/25/2002 Hib Conjugate, Unspecified 12/11/1990 Human Papilloma Virus Vaccine 07/31/2010, 010 Inactivated Polio Vaccine 02/18/2010,,12/11/1990,03/12,01/13/1990 Influenza A (H1N1), Inactiva niraj (Age >=3 Years) 02/18/2010 Influenza Virus, Unspecified 07/07/2016,07/17/20 15,08/11/2014 Influenza, IIV3 (Age 6-35 mos) 06/22/2013 Influenza, IIV3 (Age >=3 years) 08/25/2008,08/15 Influenza, IIV4 06/14/2014 MMR 05/25/2002,12/11/1990 Meningococcal Vaccine 02/18/2010 Meningococcal Vaccine (Menactra) 06/03/2008 Polio Virus, Unspecified 04/29/1995,11/15,03/12/1990,01/13 Tdap 05/25/2002 Family History Medical History Relation Name Comments Allergies Father Asthma Father Diabetes Father type 2 Heart Disease Father CHF Hypertension Father [place] x2 at 62, [place] F Diabetes Maternal Grandmother Psychiatric illness Maternal Grandmother Good Health Mother Hypertension Mother Psychiatric illness Mother depressi on Good Health Sister 2 Asthma Sister 3 GI Disease Sister 4 Relation Name Status Comments Father Alive Maternal Grandfather Alive Maternal Grandmother Alive Mother Alive Paternal Grandfather Paternal Grandmother Alive Sister 1 Alive Sister 2 Sister 3 Sister 4 Social History Tobacco Use Types Packs/Day Years Used Date Smoking Tobacco: Never Smokeless Tobacco: Never Tobacco Cessation:Counseling Given: Yes Alcohol Use Standard Drinks/Week Comments Yes 0 (1 standard drink = 0.6 oz pur e alcohol) Occasional PHQ-2 Answer Date Recorded PHQ-2 Score 0 07/03/2019 Social Connections Answer Date Recorded Frequency of Communication with Friends and Fami ly Not on file 07/25/2023 Sex and Gender Information Value Date Recorded Sex Assigned at Not on file Gender Identity Not on file Sexual Orientation Not on file Obstetrics History Para Term AB IAB SAB Ectopic Multiple Livin g Live Births 0 0 0 0 0 0 0 0 0 0 Last Filed Vital Signs Vital Sign Reading Time Taken Comments Blood Pressure 118/72 01/24/2024 8:32 AM CDT Pulse 68 01/24/2024 8:32 AM CDT Temperature 36.7 ??C (98 ??F) 07/03/2019 9:45 AM CDT Respiratory Rate 16 12/16/2017 4:05 PM MANAGER SPORTS Oxygen Saturation 98% 12/16/2017 4:05 PM MANAGER SPORTS Inhaled Oxygen Concentration - - Weight 85.6 kg (188 lb 11.2 oz) 01/24/2024 8:32 AM CDT Height 170.7 cm (5' 7.21) 07/25/2023 7:57 AM CD T Body Mass Index 29.37 07/25/2023 7:57 AM CDT Plan of Treatment Health Maintenance Due Date Last Done Comments Tetanus booster 02/19/2020 02/18/2010 (Comp leted outside of [facility]), 05/25/2002, 05/25/2002 ([facility] Depression screening for age 12+ 07/03/2020 07/03/2019, 05/01/2017, 02/07/2016 COVID-19 vaccine series ( season) 2024 01/26/2021, 12/30/2020 Influenza for age 9-49 06/14/2024 6, 07/17/2015, 08/11/2014, Additional history exists BMI (ht and wt on same day) for age 18+ 07/25/2024 07/25/2023, 07/03/2019, 05/02/2018, Additional history exists Pap test for age 21-65 12/06/2024 , 12/06/2021, 05/01/2017, Additional history exists Tdap Completed 05/25/2002 HIV for age 15-65 Completed 02/07/2016 Hepatitis C screening for age 18-79 Completed 02/07/2016 Pneumococcal series for age 6-64 Aged Out No longer eligible based on patient's age to complete this topic Procedures Procedure Name Priority Date/Time Associated Diagnosis Comments HPV HIGH RISK Routine 12/06/2021 8:30 AM MANAGER SPORTS ANTI HIV 1/2 Routine 02/07/2016 8:40 AM CDT Screen for STD (sexually transmitted disease) ANTI HCV Routine 02/07/2016 8:40 AM CDT Screen for STD (sexually transmitted disease) from Last 3 Months or Most Recently Relevant to Health Maintenance Results * HPV HIGH RISK (12/06/2021 8:30 AM MANAGER SPORTS) TYPE 16 Negative Negative 12/08/2021 11:29 AM MANAGER SPORTS [facility] TYPE 18 Negative Negative 12/08/2021 11:29 AM MANAGER SPORTS [facility] OTHER HIGH RISK TYPES Negative Negative 12/08/2021 11:29 AM MANAGER SPORTS [facility] Other (Cervical/Vagina l) 12/06/2021 8:30 AM MANAGER SPORTS 12/07/2021 8:42 AM MANAGER SPORTS Narrative [facility] - 12/08/2021 11:29 AM MANAGER SPORTS HPV types 16, 18, 31, 33, 35, 39, 45, 51, 52, 56, 58, 59, 66 and 68 DNA were undetectable or below the pre-set threshold. Methodology: Elinor Gregory 4800 HPV Test Joselyn Finney MD MICROBIOLO GY Performing Organization Address City/[facility]/ZIP Co de Phone Number [facility] [address] [place] [address], * ANTI HCV (02/07/2016 8:40 AM CDT) HEPATITIS C ANTIBODY Non-Reacti ve Non-Reacti ve 02/07/2016 2:30 PM CDT [facility] Blood specimen (specimen) BLOOD SPECIMEN / Unknown Butterfly / Unknown 02/07/2016 8:40 AM CDT 02/07/2016 8:40 AM CDT Narrative [facility] - 02/07/2016 2:30 PM CDT Antibodies to HCV not detected; does not exclude the possibility of exposure to HCV. Kathya ROTHMAN SEND OUTS [facility] [address] [place] [address], * ANTI HIV 1/2 (02/07/2016 8:40 AM CDT) HIV-1/HIV-2 ANTIBODY Non-Reacti ve Non-Reacti ve 02/07/2016 2:32 PM CDT [facility] Blood specimen (specimen) BLOOD SPECIMEN / Unknown Butterfly / Unknown 02/07/2016 8:40 AM CDT 02/07/2016 8:40 AM CDT Narrative [facility] - 02/07/2016 2:32 PM CDT HIV-1 p24 and HIV-1/HIV-2 Ab not detected Kathya ROTHMAN SEND OUTS [facility] [address] [place] [address], from Last 3 Months or Most Recently Relevant to Health Maintenance Care Teams Manager Shipping Relationship Specialty Start Date End Date Pcp, No . PCP - General 04/19/23
--- OUTSIDE RECORDS SUMMARY | 2024-07-06 09:42 | XMS_ITS | Referral Summary ---
Author Organization [facility] Address [address] [place] [address] Care Team Providers Care Flexible Shaft Winder Name Role Phone Unavailable Primary Care Provider [...] Mass Index - - Plan of Treatment Not on file
== END 2024-07-06 09:39 | disposition home or self-care (01) ==
LOC: NPINS 09:38
PROVIDERS: PCP Registered Nurse; Visit Provider Obstetrics & Gynecology Reproductive Endocrinology
DX: O09.01 Supervision of pregnancy with history of infertility, first trimester (principal)
CPT/HCPCS: 84702

== ENCOUNTER 2024-07-20 10:34 | Outpatient (CLI) | payer BC, SELFPAY ==
--- OUTSIDE RECORDS SUMMARY | 2024-07-20 10:36 | XMS_ITS | Clinical Summary ---
Author Organization [facility] Address [place], [place] [address] Care Team Providers Care Store Worker Name Role Phone Pcp, No Primary Care [...] 2 Heart Disease Father CHF Hypertension Father [place] x2 at 62, CH F Diabetes Maternal [...] CDT Respiratory Rate 16 12/16/2017 4:05 PM DRAFTER CHIEF DESIGN Oxygen Saturation 98% 12/16/2017 4:05 PM DRAFTER CHIEF DESIGN Inhaled Oxygen Concentration - - Weight 85.6 kg (188 lb 11.2 oz) 01/24/2024 8:32 AM CDT Height 170.7 cm (5' 7.21) 07/25/2023 7:57 AM CD T Body Mass Index 29.37 07/25/2023 7:57 AM CDT Plan of Treatment Health Maintenance Due Date Last Done Comments Tetanus booster 02/19/2020 02/18/2010 (Comp leted outside of [facility]), 05/25/2002, 05/25/2002 ([facility]) Depression screening for age 12+ 07/03/2020 07/03/2019, [...] HPV HIGH RISK Routine 12/06/2021 8:30 AM DRAFTER CHIEF DESIGN ANTI HIV 1/2 Routine 02/07/2016 8:40 AM CDT Screen for STD (sexually transmitted disease) ANTI HCV Routine 02/07/2016 8:40 AM CDT Screen for STD (sexually transmitted disease) from Last 3 Months or Most Recently Relevant to Health Maintenance Results * HPV HIGH RISK (12/06/2021 8:30 AM DRAFTER CHIEF DESIGN) TYPE 16 Negative Negative 12/08/2021 11:29 AM DRAFTER CHIEF DESIGN [facility] TYPE 18 Negative Negative 12/08/2021 11:29 AM DRAFTER CHIEF DESIGN [facility] OTHER HIGH RISK TYPES Negative Negative 12/08/2021 11:29 AM DRAFTER CHIEF DESIGN [facility] Other (Cervical/Vagina l) 12/06/2021 8:30 AM DRAFTER CHIEF DESIGN 12/07/2021 8:42 AM DRAFTER CHIEF DESIGN Narrative [facility] - 12/08/2021 11:29 AM DRAFTER CHIEF DESIGN HPV types 16, 18, 31, 33, 35, 39, 45, 51, 52, 56, 58, 59, 66 and 68 DNA were undetectable or below the pre-set threshold. Methodology: Elinor Gregory 4800 HPV Test Joselyn Finney MD MICROBIOLO GY Performing Organization Address City/[facility]/ZIP Co de Phone Number [facility] [address] [place] [address], * ANTI HCV (02/07/2016 8:40 AM CDT) HEPATITIS C ANTIBODY Non-Reacti ve Non-Reacti ve 02/07/2016 2:30 PM CDT [facility] Blood specimen (specimen) BLOOD SPECIMEN / Unknown Butterfly / Unknown 02/07/2016 8:40 AM CDT 02/07/2016 8:40 AM CDT Narrative [facility] - 02/07/2016 2:30 PM CDT Antibodies to HCV not detected; does not exclude the possibility of exposure to HCV. Kathya ROTHMAN SEND OUTS [facility] [address] [place] [address], * ANTI HIV 1/2 (02/07/2016 8:40 AM CDT) HIV-1/HIV-2 ANTIBODY Non-Reacti ve Non-Reacti ve 02/07/2016 2:32 PM CDT [facility] Blood specimen (specimen) BLOOD SPECIMEN / Unknown Butterfly / Unknown 02/07/2016 8:40 AM CDT 02/07/2016 8:40 AM CDT Narrative [facility] - 02/07/2016 2:32 PM CDT HIV-1 p24 and HIV-1/HIV-2 Ab not detected Kathya ROTHMAN SEND OUTS [facility] [address] [place] [address], from Last 3 Months or Most Recently Relevant to Health Maintenance Care Teams Store Worker Relationship Specialty Start Date End Date Pcp, No . PCP - General 04/19/23
--- OUTSIDE RECORDS SUMMARY | 2024-07-20 10:36 | XMS_ITS | Referral Summary ---
Author Organization [place] [facility] Address [address] [place] [address] Care Team Providers Care Clinical Documentation Manager Name Role Phone Unavailable Primary Care Provider [...]
--- OUTSIDE RECORDS SUMMARY | 2024-07-20 10:36 | XMS_ITS | Clinical Summary ---
Author Organization [place] Address [address] [place] [address] Care Team Providers Care Housekeeping Assistant Name Role Phone Unavailable Primary Care Provider [...] Additional history exists PAP 12/06/2024 12/06/2021, 12/06/2021 RSV VACCINE (1 - 1-dose 75+ series) 2064 HEPATITIS B IMMUNIZATION Completed 004, 07/24/2002, 07/24/2002, [...]
--- NOTE | 2024-07-20 10:45 | CRLHL7_ITS ---
For Patients: As a result of the Cures Act, medical imaging exams and procedure reports are released immediately into your electronic medical record. You may view this report before your referring provider. If you have questions, please contact your health care provider. INDICATION: First trimester scan, establish dates. COMPARISON: None. TECHNIQUE: Real-time modi-scale imaging of the pelvis was performed. FINDINGS: Sonographic imaging demonstrates a single living intrauterine gestation. The embryo demonstrates a regular cardiac rate measuring 122 beats per minute. The embryo`s crown-rump length measurement of 0.7 cm corresponds to a gestational age of 6 weeks 4 days with a sonographic due date of 03/11/2025. There is a normal-appearing yolk sac. There are no gross abnormalities noted within the embryo at this early state of development. The gestational sac has a normal appearance. There is no evidence of a perigestational hemorrhage. The amount of fluid within the sac appears appropriate for gestational age. The cervix is closed. The myometrium appears normal. The ovaries are of normal size. There are no suspicious fluid collections noted in the cul-de-sac. IMPRESSION: Normal first trimester OB ultrasound exam. Gestational age calculated at 6 weeks 4 days with a sonographic due date of 03/11/2025. Dictated by Jatinder Drake MD @ 07/20/2024 12:32:04 PM (Electronically Signed)
== END 2024-07-20 10:35 | disposition home or self-care (01) ==
LOC: US 10:35
PROVIDERS: PCP Registered Nurse; Visit Provider Obstetrics & Gynecology Reproductive Endocrinology
DX: Z34.91 Encounter for supervision of normal pregnancy, unspecified, first trimester (principal); Z3A.01 Less than 8 weeks gestation of pregnancy
CPT/HCPCS: 76817

== ENCOUNTER 2024-08-04 10:30 | Outpatient (CLI) | payer BC, SELFPAY ==
--- OUTSIDE RECORDS SUMMARY | 2024-08-04 10:33 | XMS_ITS | Clinical Summary ---
Author Organization [facility] Address [place], [place] [address] Care Team Providers Care Purchasing Administrator Name Role Phone Pcp, No Primary Care [...] 2 Heart Disease Father CHF Hypertension Father [place] x2 at 62, CH F Diabetes Maternal [...] CDT Respiratory Rate 16 12/16/2017 4:05 PM LIBRARY ATTENDANT Oxygen Saturation 98% 12/16/2017 4:05 PM LIBRARY ATTENDANT Inhaled Oxygen Concentration - - Weight 85.6 kg (188 lb 11.2 oz) 01/24/2024 8:32 AM CDT Height 170.7 cm (5' 7.21) 07/25/2023 7:57 AM CD T Body Mass Index 29.37 07/25/2023 7:57 AM CDT Plan of Treatment Health Maintenance Due Date Last Done Comments Tetanus booster 02/19/2020 02/18/2010 (Comp leted outside of [facility]), 05/25/2002, 05/25/2002 (Completed outside of [facility]) Depression screening for age 12+ 07/03/2020 07/03/2019, [...] HPV HIGH RISK Routine 12/06/2021 8:30 AM LIBRARY ATTENDANT ANTI HIV 1/2 Routine 02/07/2016 8:40 AM CDT Screen for STD (sexually transmitted disease) ANTI HCV Routine 02/07/2016 8:40 AM CDT Screen for STD (sexually transmitted disease) from Last 3 Months or Most Recently Relevant to Health Maintenance Results * HPV HIGH RISK (12/06/2021 8:30 AM LIBRARY ATTENDANT) TYPE 16 Negative Negative 12/08/2021 11:29 AM LIBRARY ATTENDANT [facility] TYPE 18 Negative Negative 12/08/2021 11:29 AM LIBRARY ATTENDANT [facility] OTHER HIGH RISK TYPES Negative Negative 12/08/2021 11:29 AM LIBRARY ATTENDANT [facility] Other (Cervical/Vagina l) 12/06/2021 8:30 AM LIBRARY ATTENDANT 12/07/2021 8:42 AM LIBRARY ATTENDANT Narrative [facility] - 12/08/2021 11:29 AM LIBRARY ATTENDANT HPV types 16, 18, 31, 33, 35, 39, 45, 51, 52, 56, 58, 59, 66 and 68 DNA were undetectable or below the pre-set threshold. Methodology: Elinor Gregory 4800 HPV Test Joselyn Finney MD MICROBIOLO GY Performing Organization Address City/[facility]/ZIP Co de Phone Number [facility] [address] [place] [address], * ANTI HCV (02/07/2016 8:40 AM CDT) HEPATITIS C ANTIBODY Non-Reacti ve Non-Reacti ve 02/07/2016 2:30 PM CDT [facility] Blood specimen (specimen) BLOOD SPECIMEN / Unknown Butterfly / Unknown 02/07/2016 8:40 AM CDT 02/07/2016 8:40 AM CDT Narrative [facility] - 02/07/2016 2:30 PM CDT Antibodies to HCV not detected; does not exclude the possibility of exposure to HCV. Kathya ROTHMAN SEND OUTS [facility] [address] [place] [address], * ANTI HIV 1/2 (02/07/2016 8:40 AM CDT) HIV-1/HIV-2 ANTIBODY Non-Reacti ve Non-Reacti ve 02/07/2016 2:32 PM CDT [facility] Blood specimen (specimen) BLOOD SPECIMEN / Unknown Butterfly / Unknown 02/07/2016 8:40 AM CDT 02/07/2016 8:40 AM CDT Narrative [facility] - 02/07/2016 2:32 PM CDT HIV-1 p24 and HIV-1/HIV-2 Ab not detected Kathya ROTHMAN SEND OUTS [facility] [address] [place] [address], from Last 3 Months or Most Recently Relevant to Health Maintenance Care Teams Purchasing Administrator Relationship Specialty Start Date End Date Pcp, No . PCP - General 04/19/23
--- OUTSIDE RECORDS SUMMARY | 2024-08-04 10:33 | XMS_ITS | Clinical Summary ---
Author Organization [facility] Address [address] [place] [address] Care Team Providers Care Aircraft Powertrain Repairer Name Role Phone Unavailable Primary Care Provider [...]
--- OUTSIDE RECORDS SUMMARY | 2024-08-04 10:33 | XMS_ITS | Referral Summary ---
Author Organization [facility] Address [address] [place] [address] Care Team Providers Care Merchandise Support Associate Name Role Phone Unavailable Primary Care Provider [...]
--- NOTE | 2024-08-04 10:45 | CRLHL7_ITS ---
For Patients: As a result of the Century Cures Act, medical imaging exams and procedure reports are released immediately into your electronic medical record. You may view this report before your referring provider. If you have questions, please contact your health care provider. OBSTETRICAL ULTRASOUND INDICATION: IVF . PEDRO by LMP: IVF. Gestational Age: 8w 5d. Previous US: Yes, 07/20/2024. PEDRO by US: 03/11/2025. COMPARISON: 07/20/2024. TECHNIQUE: Transvaginal pelvic ultrasound. FINDINGS: CRL: 2.1 cm, 8 weeks 5 days. PEDRO: 03/11/2025. heart rate: 173 bpm. Gestational sac: 1.9 cm appears within normal limits Yolk sac: 2.5 mm appears within normal limits Right ovary: Within normal limits; 2.7 x 1.4 x 2.4 cm. Left ovary: Within normal limits; 2.8 x 1.4 x 2.1 cm. IMPRESSION: Single, viable intrauterine . Measurements consistent with prior ultrasound dates. Lit Orozco M.D. Body/Diagnostic Radiologist [email or web address] SP/Dictated by: Lit Orozco MD @ 08/05/2024 3:05:00 PM (Electronically Signed)
== END 2024-08-04 10:31 | disposition home or self-care (01) ==
LOC: US 10:31
PROVIDERS: Visit Provider Obstetrics & Gynecology Reproductive Endocrinology
DX: O09.811 Supervision of pregnancy resulting from assisted reproductive technology, first trimester (principal); Z3A.08 8 weeks gestation of pregnancy
CPT/HCPCS: 76817

== ENCOUNTER 2024-08-14 09:17 | Outpatient (CLI) | payer BC, SELFPAY ==
--- OUTSIDE RECORDS SUMMARY | 2024-08-14 09:20 | XMS_ITS | Clinical Summary ---
Author Organization [facility] Address [place], [place] [address] Care Team Providers Care Director Biomedical Engineering Name Role Phone Pcp, No Primary Care [...] 2 Heart Disease Father CHF Hypertension Father CT x2 at 62, CH F Diabetes Maternal [...] CDT Respiratory Rate 16 12/16/2017 4:05 PM TITLE VEHICLE SERVICE ATTENDANT Oxygen Saturation 98% 12/16/2017 4:05 PM TITLE VEHICLE SERVICE ATTENDANT Inhaled Oxygen Concentration - - Weight 85.6 kg (188 lb 11.2 oz) 01/24/2024 8:32 AM CDT Height 170.7 cm (5' 7.21) 07/25/2023 7:57 AM CD T Body Mass Index 29.37 07/25/2023 7:57 AM CDT Plan of Treatment Health Maintenance Due Date Last Done Comments Tetanus booster 02/19/2020 02/18/2010 (Comp leted outside of [facility]), 05/25/2002, 05/25/2002 ([facility]) Depression screening for age 12+ 07/03/2020 07/03/2019, [...] HPV HIGH RISK Routine 12/06/2021 8:30 AM TITLE VEHICLE SERVICE ATTENDANT ANTI HIV 1/2 Routine 02/07/2016 8:40 AM CDT Screen for STD (sexually transmitted disease) ANTI HCV Routine 02/07/2016 8:40 AM CDT Screen for STD (sexually transmitted disease) from Last 3 Months or Most Recently Relevant to Health Maintenance Results * HPV HIGH RISK (12/06/2021 8:30 AM TITLE VEHICLE SERVICE ATTENDANT) TYPE 16 Negative Negative 12/08/2021 11:29 AM TITLE VEHICLE SERVICE ATTENDANT [facility] TYPE 18 Negative Negative 12/08/2021 11:29 AM TITLE VEHICLE SERVICE ATTENDANT [facility] OTHER HIGH RISK TYPES Negative Negative 12/08/2021 11:29 AM TITLE VEHICLE SERVICE ATTENDANT [facility] Other (Cervical/Vagina l) 12/06/2021 8:30 AM TITLE VEHICLE SERVICE ATTENDANT 12/07/2021 8:42 AM TITLE VEHICLE SERVICE ATTENDANT Narrative [facility] - 12/08/2021 11:29 AM TITLE VEHICLE SERVICE ATTENDANT HPV types 16, 18, 31, 33, 35, 39, 45, 51, 52, 56, 58, 59, 66 and 68 DNA were undetectable or below the pre-set threshold. Methodology: Elinor Gregory 4800 HPV Test Joselyn Finney MD MICROBIOLO GY Performing Organization Address City/[facility]/ZIP Co de Phone Number [facility] [address] [place] [address], * ANTI HCV (02/07/2016 8:40 AM CDT) HEPATITIS C ANTIBODY Non-Reacti ve Non-Reacti ve 02/07/2016 2:30 PM CDT [facility] Blood specimen (specimen) BLOOD SPECIMEN / Unknown Butterfly / Unknown 02/07/2016 8:40 AM CDT 02/07/2016 8:40 AM CDT Narrative [facility] - 02/07/2016 2:30 PM CDT Antibodies to HCV not detected; does not exclude the possibility of exposure to HCV. Kathya ROTHMAN SEND OUTS [facility] [address] [place] [address], * ANTI HIV 1/2 (02/07/2016 8:40 AM CDT) HIV-1/HIV-2 ANTIBODY Non-Reacti ve Non-Reacti ve 02/07/2016 2:32 PM CDT [facility] Blood specimen (specimen) BLOOD SPECIMEN / Unknown Butterfly / Unknown 02/07/2016 8:40 AM CDT 02/07/2016 8:40 AM CDT Narrative [facility] - 02/07/2016 2:32 PM CDT HIV-1 p24 and HIV-1/HIV-2 Ab not detected Kathya ROTHMAN SEND OUTS [facility] [address] [place] [address], from Last 3 Months or Most Recently Relevant to Health Maintenance Care Teams Director Biomedical Engineering Relationship Specialty Start Date End Date Pcp, No . PCP - General 04/19/23
--- OUTSIDE RECORDS SUMMARY | 2024-08-14 09:20 | XMS_ITS | Referral Summary ---
Author Organization [facility] Address [address] [place] [address] Care Team Providers Care Mechanical Systems Control Engineer Name Role Phone Unavailable Primary Care Provider Unavailabl e Social History Tobacco Use Types Packs/Day Years Used Date Smoking Tobacco: Never Assessed Adolescent Education Answer Date Record ed Getting School Help Needed Not on file 07/06 Comments No Sex and Gender Information Value Date Recorded Sex Assigned at Female 07/09/2022 9:15 AM CDT Legal Sex Female 9:21 AM CDT Gender Identity Female 07/09/2022 9:15 [...] - Plan of Treatment Not on file Insurance BCBS OUT OF STATE
--- OUTSIDE RECORDS SUMMARY | 2024-08-14 09:20 | XMS_ITS | Clinical Summary ---
Author Organization [facility] Address [address] [place] [address] Care Team Providers Care Bird Trapper Name Role Phone Unavailable Primary Care Provider [...] 09/27/2021, 01/26/2021, 12/30/2020 INFLUENZA VACCINE (#1) 2024 , 07/26/2021, 07/26/2020, Additional history exists PAP 12/06/2024 [...] on patient's age to complete this topic Insurance BCBS OUT OF STATE
[2024-08-14 13:57] LABS: Chlamydia DNA Amplified* NOT DETECTED (No Detected); GC DNA Amplified* NOT DETECTED (No Detected)
== END 2024-08-14 09:18 | disposition home or self-care (01) ==
PROVIDERS: Visit Provider Registered Nurse
DX: Z34.81 Encounter for supervision of other normal pregnancy, first trimester (principal)
CPT/HCPCS: 82565; 82570; 84156; 84450; 84460; 84520; 86592; 86703; 86704; 86706; 86762; 86787; 86803; 86850; 86900; 86901; 87086; 87340; 87491; 87591

== ENCOUNTER 2024-08-17 07:00 | Outpatient (CLI) | payer BC, SELFPAY ==
--- OUTSIDE RECORDS SUMMARY | 2024-08-20 02:27 | XMS_ITS | Clinical Summary ---
Author Organization [facility] Address [place], [place] [address] Care Team Providers Care City Distribution Clerk Name Role Phone Pcp, No Primary Care [...] 2 Heart Disease Father CHF Hypertension Father [place] x2 at 62, CH F Diabetes Maternal [...] CDT Respiratory Rate 16 12/16/2017 4:05 PM LIQUID CHLORINE OPERATOR Oxygen Saturation 98% 12/16/2017 4:05 PM LIQUID CHLORINE OPERATOR Inhaled Oxygen Concentration - - Weight 85.6 kg (188 lb 11.2 oz) 01/24/2024 8:32 AM CDT Height 170.7 cm (5' 7.21) 07/25/2023 7:57 AM CD T Body Mass Index 29.37 07/25/2023 7:57 AM CDT Plan of Treatment Health Maintenance Due Date Last Done Comments Tetanus booster 02/19/2020 02/18/2010 (Comp leted outside of [facility]), 05/25/2002, 05/25/2002 (Completed outside of [facility]) Depression screening for age 12+ 07/03/2020 07/03/2019, [...] HPV HIGH RISK Routine 12/06/2021 8:30 AM LIQUID CHLORINE OPERATOR ANTI HIV 1/2 Routine 02/07/2016 8:40 AM CDT Screen for STD (sexually transmitted disease) ANTI HCV Routine 02/07/2016 8:40 AM CDT Screen for STD (sexually transmitted disease) from Last 3 Months or Most Recently Relevant to Health Maintenance Results * HPV HIGH RISK (12/06/2021 8:30 AM LIQUID CHLORINE OPERATOR) TYPE 16 Negative Negative 12/08/2021 11:29 AM LIQUID CHLORINE OPERATOR [facility] TYPE 18 Negative Negative 12/08/2021 11:29 AM LIQUID CHLORINE OPERATOR [facility] OTHER HIGH RISK TYPES Negative Negative 12/08/2021 11:29 AM LIQUID CHLORINE OPERATOR [facility] Other (Cervical/Vagina l) 12/06/2021 8:30 AM LIQUID CHLORINE OPERATOR 12/07/2021 8:42 AM LIQUID CHLORINE OPERATOR Narrative [facility] - 12/08/2021 11:29 AM LIQUID CHLORINE OPERATOR HPV types 16, 18, 31, 33, 35, 39, 45, 51, 52, 56, 58, 59, 66 and 68 DNA were undetectable or below the pre-set threshold. Methodology: Elinor Gregory 4800 HPV Test Joselyn Finney MD MICROBIOLO GY Performing Organization Address City/[facility]/ZIP Co de Phone Number [facility] [address] [place] [address], * ANTI HCV (02/07/2016 8:40 AM CDT) HEPATITIS C ANTIBODY Non-Reacti ve Non-Reacti ve 02/07/2016 2:30 PM CDT [facility] Blood specimen (specimen) BLOOD SPECIMEN / Unknown Butterfly / Unknown 02/07/2016 8:40 AM CDT 02/07/2016 8:40 AM CDT Narrative [facility] - 02/07/2016 2:30 PM CDT Antibodies to HCV not detected; does not exclude the possibility of exposure to HCV. Kathya ROTHMAN SEND OUTS [facility] [address] [place] [address], * ANTI HIV 1/2 (02/07/2016 8:40 AM CDT) HIV-1/HIV-2 ANTIBODY Non-Reacti ve Non-Reacti ve 02/07/2016 2:32 PM CDT [facility] Blood specimen (specimen) BLOOD SPECIMEN / Unknown Butterfly / Unknown 02/07/2016 8:40 AM CDT 02/07/2016 8:40 AM CDT Narrative [facility] - 02/07/2016 2:32 PM CDT HIV-1 p24 and HIV-1/HIV-2 Ab not detected Kathya ROTHMAN SEND OUTS [facility] [address] [place] [address], from Last 3 Months or Most Recently Relevant to Health Maintenance Care Teams City Distribution Clerk Relationship Specialty Start Date End Date Pcp, No . PCP - General 04/19/23
--- OUTSIDE RECORDS SUMMARY | 2024-08-20 02:27 | XMS_ITS | Clinical Summary ---
Author Organization [facility] Address [address] [place] [address] Care Team Providers Care Mainframe Analyst Name Role Phone Unavailable Primary Care Provider [...]
--- OUTSIDE RECORDS SUMMARY | 2024-08-20 02:27 | XMS_ITS | Referral Summary ---
Author Organization [facility] Address [address] [place] [address] Care Team Providers Care Fixed Route Bus Operator Name Role Phone Unavailable Primary Care Provider [...]
== END 2024-08-17 07:01 | disposition home or self-care (01) ==
LOC: NFLDREF 08-20 02:25
PROVIDERS: Visit Provider Registered Nurse
DX: Z34.91 Encounter for supervision of normal pregnancy, unspecified, first trimester (principal); Z87.59 Personal history of other complications of pregnancy, childbirth and the puerperium; Z3A.10 10 weeks gestation of pregnancy
CPT/HCPCS: 82570; 84156

== ENCOUNTER 2024-08-20 17:51 | Emergency (ER) | payer BC, SELFPAY ==
[2024-08-20 17:55] VITALS: BP 139/97; PULSE 81; RESP 16; TEMP 36.3; O2SAT 98; BMI 29.9
--- NOTE | 2024-08-20 18:09 | CRLHL7_ITS ---
For Patients: As a result of the Century Cures Act, medical imaging exams and procedure reports are released immediately into your electronic medical record. You may view this report before your referring provider. If you have questions, please contact your health care provider. INDICATION: LEFT CALF PAIN. TECHNIQUE: Ultrasound venous duplex lower left extremity. Compression venous exam was performed using modi-scale, color Doppler, and spectral Doppler analysis. COMPARISON: None. FINDINGS: Deep veins: Sonographic imaging demonstrates the left common femoral, deep femoral, superficial femoral, popliteal, posterior tibial, peroneal and the contralateral right common femoral veins to be fully compressible with normal color Doppler blood flow. Superficial veins: Greater saphenous vein is fully compressible. No popliteal cyst. IMPRESSION: No deep venous thrombosis in the evaluated veins of the left lower extremity. Dictated by Eriberto Luo MD @ 08/20/2024 7:23:59 PM (Electronically Signed)
--- NOTE | 2024-08-20 18:11 | ED_ITS ---
HPI - General Adult General Date Seen: 08/20/24 Chief complaint: Extremity Pain/Injury, Lower Stated complaint: L leg pain Time Seen by Provider: 08/20/24 18:01 Source: patient Mode of arrival: ambulatory Limitations: no limitations History of Present Illness HPI narrative: Patient is a 33-year-old female presenting to the emergency department for left leg pain. She states she has been sitting in meetings all day and was having pain in her lower calf that has since moved up higher up into her calf. Does state states there seems to be more pinpoint area of pain rather than the whole calf but was told that she have her had unilateral leg pain to come to the emergency department. She has no history of blood clots. Is not having any associated chest pain, shortness of breath, weakness, numbness, headache. Only issue with previous was preeclampsia. Has not noticed any swelling to lower extremities. Related Data Home Medications ?Medication ?Instructions ?Recorded ?Confirmed 103-folic acid 400 1 tab PO DAILY 06/07/22 08/20/24 mcg-omeg3 32.5 mg-dha-fish oil chew tablet ( with DHA and Folic Acid) aspirin 81 mg tablet,delayed 81 mg PO QDAY 08/14/24 08/20/24 release (Adult Low Dose Aspirin) Allergies Allergy/AdvReac Type Severity Reaction Status Date / Time No Known Allergies Allergy Verified 08/20/24 18:03 Review of Systems Narrative: Pertinent systems reviewed and were negative unless stated in HPI PFSH [facility] Medical History Female infertility associated with anovulation ?N97.0 - Female infertility associated with anovulation (ICD-10) with history of infertility ?O09.00 - Supervision of with history of infertility, unspecified trimester (ICD-10) Pre-eclampsia affecting , antepartum ?O14.90 - Unspecified pre-eclampsia, unspecified trimester (ICD-10) History of migraine headaches ?Z86.69 - Personal history of other diseases of the nervous system and sense organs (ICD-10) History of hysterosalpingogram ?Z98.890 - Other specified postprocedural states (ICD-10) Surgical History History of breast augmentation (2013) ?Z98.82 - Breast implant status (ICD-10) Family History Father Coronary artery disease Diabetes Aunt Diabetes Family/Other Diabetes Social History Narrative: Non-smoker, quit 2020 - Ivan What is your current living situation?: I presently have a place to live Problems where you live: no known problems In the past 12 months, utilities in danger of being shut off: no In past 12 months, lack of transportation kept you from medical appts, meetings, work, or getting things needed for daily living: no In the past 12 mos, have been you worried that your food would run out before you had money to buy more?: never true In the past 12 mos, the food you bought just didn't last and you didn't have money to buy more?: never true Smoking Status: Former smoker What tobacco products do you use: cigarettes Smoking packs per day: 0.15 Smoking cigarettes per day: 3.0 Years smoked: 10 Smoking pack-years: 1.50 Smoking quit date/years: <= 15 years ago Do you use any of these nicotine containing products: Smokeless Tobacco How often do you have a drink containing alcohol: never AUDIT-C Alcohol total score: 0 Non-prescribed substance use: denies use How often does anyone, including family, friends and others, physically hurt you : never How often does anyone, including family, friends and others, insult or talk down to you: never How often does anyone, including family, friends and others, threaten you with harm: never How often does anyone, including family, friends and others, scream or curse at you: never Little interest or pleasure in doing things: not at all Feeling down, depressed, or hopeless: not at all Exam Narrative: Exam Narrative: Const: Well-nourished, Well-developed, in mild distress Eyes: PERRL, no conjunctival injection, and symmetrical lids HENT: Atraumatic external nose and ears. Moist mucous membranes. MSK:Extremities w/o deformity, Normal Active ROM, no swelling to legs, negative Shaquille's test Skin: Warm, Dry. No rashes or lesions. Neuro: Normal Muscle tone, No focal neurological deficits. Psych: Awake, Alert, & Oriented x3. Appropriate mood and affect. Const: Vital Signs, click to edit/add: Vital Signs - 24 hr 08/20/24 17:55 08/20/24 19:40 Temperature 97.4 F L Pulse Rate [Pulse Oximeter] 81 Respiratory Rate 16 Blood Pressure [Ri ght Upper Arm] 139/97 H 149/109 H Pulse Oximetry 98 Oxygen Delivery Me thod Room Air Course Vital Signs Vital signs: Initial Vital Signs Temperature 97.4 F L 08/20/24 17:55 Temperature Source Temporal Artery Scan 08/20/24 17:55 Pulse Rate 81 08/20/24 17:55 Respiratory Rate 16 08/20/24 17:55 Blood Pressure 139/97 H 08/20/24 17:55 Blood Pressure Mean 111 H 08/20/24 17:55 Blood Pressure Position High-Fowlers 08/20/24 17:55 Pulse Oximetry 98 08/20/24 17:55 Oxygen Delivery Method Room Air 08/20/24 17:55 Vital Signs Temperature 97.4 F L 08/20/24 17:55 Pulse Rate 81 08/20/24 17:55 Respiratory Rate 16 08/20/24 17:55 Blood Pressure 139/97 H 08/20/24 17:55 Pulse Oximetry 98 08/20/24 17:55 Oxygen Delivery Method Room Air 08/20/24 17:55 Temperature 97.4 F L 08/20/24 17:55 Pulse Rate 81 08/20/24 17:55 Respiratory Rate 16 08/20/24 17:55 Blood Pressure 149/109 H 08/20/24 19:40 Pulse Oximetry 98 08/20/24 17:55 Oxygen Delivery Method Room Air 08/20/24 17:55 Medical Decision Making MDM Narrative Medical decision making narrative: Patient is a 33-year-old female presenting for left leg pain. She is and hypercoagulable state as she is . While there are no clear signs of DVT I will do an ultrasound to rule that out. She is agreeable to this. Further imaging and lab work are not necessary my opinion. Ultrasound shows no signs of a blood clot. Patient is safe for discharge and she is agreeable to this plan. Of note prior to discharge she was hypertensive 149/109. She 1st arrived blood pressure is 139/97. Six days ago when she saw Ob Gyne her blood pressure was 122/72. Buttock to the on-call OB and she recommends having the patient follow- up in 1 week for a blood pressure check. Patient does have a history of preeclampsia but she is too early along in the for that diagnosis at this time Imaging Data Venous US: Attestation: I have reviewed the pertinent imaging results. Radiologist's impression: No deep venous thrombosis in the evaluated veins of the left lower extremity. Dictated by Eriberto Luo MD @ 08/20/2024 7:23:59 PM Discharge Plan Discharge Clinical Impression: Left leg pain Patient Disposition: Home, Self-Care Condition: Stable Instructions: Leg Pain (ED) Additional Instructions: I am not sure why you are having his leg pain right now but ultrasound showed no signs of a blood clot. Repeat her for new or worsening symptoms. Follow-up with OB in 1 week for blood pressure check. Prescriptions: No Action aspirin [Adult Low Dose Aspirin] 81 mg tablet,delayed release (DR/EC) 81 mg PO QDAY with DHA-Folic Acid 400-32.5 mcg-mg tablet,chewable 1 tab PO DAILY Follow Up/Referrals: Provider,Not a Local [Primary Care Provider] - Stand Alone Forms: MyHealth Info Instructions
--- OUTSIDE RECORDS SUMMARY | 2024-08-20 18:58 | XMS_ITS | Clinical Summary ---
Author Organization [facility] Address [address] [place] [address] Care Team Providers Care Marine Extension Agent Name Role Phone Unavailable Primary Care Provider [...]
--- OUTSIDE RECORDS SUMMARY | 2024-08-20 18:58 | XMS_ITS | Clinical Summary ---
Author Organization [facility] Address [place], [place] [address] Care Team Providers Care Hunter Guide Name Role Phone Pcp, No Primary Care [...] 2 Heart Disease Father CHF Hypertension Father [place] x2 at 62, CH F Diabetes Maternal [...] CDT Respiratory Rate 16 12/16/2017 4:05 PM STRATEGIC PLANNER Oxygen Saturation 98% 12/16/2017 4:05 PM STRATEGIC PLANNER Inhaled Oxygen Concentration - - Weight 85.6 kg (188 lb 11.2 oz) 01/24/2024 8:32 AM CDT Height 170.7 cm (5' 7.21) 07/25/2023 7:57 AM CD T Body Mass Index 29.37 07/25/2023 7:57 AM CDT Plan of Treatment Health Maintenance Due Date Last Done Comments Tetanus booster 02/19/2020 02/18/2010 (Comp leted outside of [facility]), 05/25/2002, 05/25/2002 (Completed outside of [facility]) Depression screening for age 12+ 07/03/2020 [...] HPV HIGH RISK Routine 12/06/2021 8:30 AM STRATEGIC PLANNER ANTI HIV 1/2 Routine 02/07/2016 8:40 AM CDT Screen for STD (sexually transmitted disease) ANTI HCV Routine 02/07/2016 8:40 AM CDT Screen for STD (sexually transmitted disease) from Last 3 Months or Most Recently Relevant to Health Maintenance Results * HPV HIGH RISK (12/06/2021 8:30 AM STRATEGIC PLANNER) TYPE 16 Negative Negative 12/08/2021 11:29 AM STRATEGIC PLANNER [facility] TYPE 18 Negative Negative 12/08/2021 11:29 AM STRATEGIC PLANNER [facility] OTHER HIGH RISK TYPES Negative Negative 12/08/2021 11:29 AM STRATEGIC PLANNER [facility] Other (Cervical/Vagina l) 12/06/2021 8:30 AM STRATEGIC PLANNER 12/07/2021 8:42 AM STRATEGIC PLANNER Narrative [facility] - 12/08/2021 11:29 AM STRATEGIC PLANNER HPV types 16, 18, 31, 33, 35, 39, 45, 51, 52, 56, 58, 59, 66 and 68 DNA were undetectable or below the pre-set threshold. Methodology: Elinor Gregory 4800 HPV Test Joselyn Finney MD MICROBIOLO GY Performing Organization Address City/[facility]/ZIP Co de Phone Number [facility] [address] [place] [address], * ANTI HCV (02/07/2016 8:40 AM CDT) HEPATITIS C ANTIBODY Non-Reacti ve Non-Reacti ve 02/07/2016 2:30 PM CDT [facility] Blood specimen (specimen) BLOOD SPECIMEN / Unknown Butterfly / Unknown 02/07/2016 8:40 AM CDT 02/07/2016 8:40 AM CDT Narrative [facility] - 02/07/2016 2:30 PM CDT Antibodies to HCV not detected; does not exclude the possibility of exposure to HCV. Kathya ROTHMAN SEND OUTS [facility] [address] [place] [address], * ANTI HIV 1/2 (02/07/2016 8:40 AM CDT) HIV-1/HIV-2 ANTIBODY Non-Reacti ve Non-Reacti ve 02/07/2016 2:32 PM CDT [facility] Blood specimen (specimen) BLOOD SPECIMEN / Unknown Butterfly / Unknown 02/07/2016 8:40 AM CDT 02/07/2016 8:40 AM CDT Narrative [facility] - 02/07/2016 2:32 PM CDT HIV-1 p24 and HIV-1/HIV-2 Ab not detected Kathya ROTHMAN SEND OUTS [facility] [address] [place] [address], from Last 3 Months or Most Recently Relevant to Health Maintenance Care Teams Hunter Guide Relationship Specialty Start Date End Date Pcp, No . PCP - General 04/19/23
--- OUTSIDE RECORDS SUMMARY | 2024-08-20 18:58 | XMS_ITS | Referral Summary ---
Author Organization [facility] Address [address] [place] [address] Care Team Providers Care Public Health Outreach Worker Name Role Phone Unavailable Primary Care Provider [...]
[2024-08-20 19:40] VITALS: BP 149/109
== END 2024-08-20 19:52 | disposition home or self-care (01) ==
PROVIDERS: Emergency Provider Student in an Organized Health Care Education/Training Program
DX: M79.662 Pain in left lower leg (principal)
CPT/HCPCS: 93971; 99282; 99283

== ENCOUNTER 2024-09-11 10:31 | Outpatient (CLI) | payer BC, SELFPAY ==
--- OUTSIDE RECORDS SUMMARY | 2024-09-11 10:33 | XMS_ITS | Referral Summary ---
Author Organization [facility] Address [address] [place] [address] Care Team Providers Care Paint Coating Machine Operator Name Role Phone Unavailable Primary Care [...]
--- OUTSIDE RECORDS SUMMARY | 2024-09-11 10:33 | XMS_ITS | Clinical Summary ---
Author Organization [facility] Address [place], [place] [address] Care Team Providers Care Rug Repairer Name Role Phone Pcp, No Primary Care [...] 2 Heart Disease Father CHF Hypertension Father [place] x2 at 62, CH F Diabetes Maternal [...] 67 01/24/2024 8:32 AM CDT Temperature 36.7 C (98 F) 07/03/2019 9:45 AM CDT Respiratory Rate 16 12/16/2017 4:05 PM SUPERVISOR PHOSPHATIC FERTILIZER Oxygen Saturation 98% 12/16/2017 4:05 PM SUPERVISOR PHOSPHATIC FERTILIZER Inhaled Oxygen Concentration - - Weight 85.6 kg (188 lb 11.2 oz) 01/24/2024 8:32 AM CDT Height 170.7 cm (5' 7.21) 07/25/2023 7:57 AM CD T Body Mass Index 29.37 07/25/2023 7:57 AM CDT Plan of Treatment Health Maintenance Due Date Last Done Comments Tetanus booster 02/19/2020 02/18/2010 (Comp leted outside of [facility]), 05/25/2002, 05/25/2002 (Completed outside of [facility]) Depression screening for age 12+ 07/03/2020 07/03/2019, [...] HPV HIGH RISK Routine 12/06/2021 8:30 AM SUPERVISOR PHOSPHATIC FERTILIZER ANTI HIV 1/2 Routine 02/07/2016 8:40 AM CDT Screen for STD (sexually transmitted disease) ANTI HCV Routine 02/07/2016 8:40 AM CDT Screen for STD (sexually transmitted disease) from Last 3 Months or Most Recently Relevant to Health Maintenance Results * HPV HIGH RISK (12/06/2021 8:30 AM SUPERVISOR PHOSPHATIC FERTILIZER) TYPE 16 Negative Negative 12/08/2021 11:29 AM SUPERVISOR PHOSPHATIC FERTILIZER [facility] TYPE 18 Negative Negative 12/08/2021 11:29 AM SUPERVISOR PHOSPHATIC FERTILIZER [facility] OTHER HIGH RISK TYPES Negative Negative 12/08/2021 11:29 AM SUPERVISOR PHOSPHATIC FERTILIZER [facility] Other (Cervical/Vagina l) 12/06/2021 8:30 AM SUPERVISOR PHOSPHATIC FERTILIZER 12/07/2021 8:42 AM SUPERVISOR PHOSPHATIC FERTILIZER Narrative [facility] - 12/08/2021 11:29 AM SUPERVISOR PHOSPHATIC FERTILIZER HPV types 16, 18, 31, 33, 35, 39, 45, 51, 52, 56, 58, 59, 66 and 68 DNA were undetectable or below the pre-set threshold. Methodology: Elinor Gregory 4800 HPV Test Joselyn Finney MD MICROBIOLO GY [facility] [address] [place] [address], [place] * ANTI HCV (02/07/2016 8:40 AM CDT) HEPATITIS C ANTIBODY Non-Reacti ve Non-Reacti ve 02/07/2016 2:30 PM CDT [facility] Blood specimen (specimen) BLOOD SPECIMEN / Unknown Butterfly / Unknown 02/07/2016 8:40 AM CDT 02/07/2016 8:40 AM CDT Narrative [facility] - 02/07/2016 2:30 PM CDT Antibodies to HCV not detected; does not exclude the possibility of exposure to HCV. Kathya ROTHMAN SEND OUTS [facility] [address] [place] [address], [place] * ANTI HIV 1/2 (02/07/2016 8:40 AM CDT) HIV-1/HIV-2 ANTIBODY Non-Reacti ve Non-Reacti ve 02/07/2016 2:32 PM CDT [facility] Blood specimen (specimen) BLOOD SPECIMEN / Unknown Butterfly / Unknown 02/07/2016 8:40 AM CDT 02/07/2016 8:40 AM CDT Narrative [facility] - 02/07/2016 2:32 PM CDT HIV-1 p24 and HIV-1/HIV-2 Ab not detected Kathya ROTHMAN SEND OUTS [facility] [address] [place] [address], from Last 3 Months or Most Recently Relevant to Health Maintenance Care Teams Rug Repairer Relationship Specialty Start Date End Date Pcp, No . PCP - General 04/19/23
--- OUTSIDE RECORDS SUMMARY | 2024-09-11 10:33 | XMS_ITS | Clinical Summary ---
Author Organization [facility] Address [address] [place] [address] Care Team Providers Care Intelligent Systems Engineer Name Role Phone Unavailable Primary Care [...]
== END 2024-09-11 10:32 | disposition home or self-care (01) ==
PROVIDERS: Visit Provider Obstetrics & Gynecology
DX: R74.8 Abnormal levels of other serum enzymes (principal)
CPT/HCPCS: 84450

== ENCOUNTER 2024-11-05 12:58 | Outpatient (CLI) | payer BC, SELFPAY | END 2024-11-05 12:59 | disposition home or self-care (01) | LOC: US 12:59 | PROVIDERS: Visit Provider Obstetrics & Gynecology | DX: O09.812 Supervision of pregnancy resulting from assisted reproductive technology, second trimester (principal); O09.522 Supervision of elderly multigravida, second trimester; Z3A.22 22 weeks gestation of pregnancy; Z87.59 Personal history of other complications of pregnancy, childbirth and the puerperium | CPT/HCPCS: 76811 ==

== ENCOUNTER 2024-11-09 07:45 | Outpatient (CLI) | payer BC, SELFPAY | END 2024-11-09 07:46 | disposition home or self-care (01) | LOC: NFLDREF 11-16 00:40 | PROVIDERS: Visit Provider Obstetrics & Gynecology | DX: O12.10 Gestational proteinuria, unspecified trimester (principal) | CPT/HCPCS: 82570; 84156 ==

== ENCOUNTER 2024-12-22 08:18 | Outpatient (CLI) | payer BC, SELFPAY | END 2024-12-22 08:19 | disposition home or self-care (01) | LOC: NFLDREF 12-24 06:15 | PROVIDERS: Visit Provider Obstetrics & Gynecology | DX: Z34.93 Encounter for supervision of normal pregnancy, unspecified, third trimester (principal); Z3A.28 28 weeks gestation of pregnancy | CPT/HCPCS: 86592 ==

== ENCOUNTER 2025-01-14 08:00 | Outpatient (CLI) | payer BC, SELFPAY ==
--- NOTE | 2025-01-14 08:15 | CRLHL7_ITS ---
For Patients: As a result of the Century Cures Act, medical imaging exams and procedure reports are released immediately into your electronic medical record. You may view this report before your referring provider. If you have questions, please contact your health care provider. OB ULTRASOUND 01/14/2025 CLINICAL HISTORY: IVF, AMA. COMPARISON: 11/05/2024, 08/04/2024, 07/20/2024. TECHNIQUE: Real time modi scale imaging of the fetus was performed transabdominal. FINDINGS: PEDRO by LMP/US: 03/11/2025. GA: 32 weeks 0 days. GESTATION: Single. CERVIX: Not visualized. POSITIONING: Vertex. AMNIOTIC FLUID: 6.1 cm SDP. PLACENTA: Technique: TA. Placenta Position: Posterior. DOPPLERS: Heart Rate: 133 bpm. BIOMETRY: BPD: 8 cm, 32 weeks 2 days. 49% HC: 29.8 cm, 33 weeks 0 days. 39% AC: 29.4 cm, 33 weeks 3 days. 85% FL: 6.3 cm, 32 weeks 4 days. 52% FL/AC Ratio: 21.42% HC/AC: 1.01. EFW: 2093 grams, 4 lb 10 oz. Age by this US: 32 weeks 6 days. PEDRO by this US: 03/05/2025. Percentile by PEDRO: 72% IMPRESSION: 1. Sonographic gestational age 32 weeks 6 days and sonographic due date 03/05/2025. Sonographic age is six days ahead of the clinical age. 2. Estimated weight 72nd percentile. Abdominal circumference 85th percentile. Jatinder Drake M.D. Diagnostic Radiologist [email or web address] Transcribed: 8:49 am DW/Dictated by: Jatinder Drake MD @ 01/15/2025 6:49:00 AM (Electronically Signed)
== END 2025-01-14 08:01 | disposition home or self-care (01) ==
LOC: US 08:01
PROVIDERS: Visit Provider Obstetrics & Gynecology
DX: Z34.93 Encounter for supervision of normal pregnancy, unspecified, third trimester (principal); Z3A.32 32 weeks gestation of pregnancy
CPT/HCPCS: 76816; 82565; 82570; 84156; 84450; 84460; 84520

== ENCOUNTER 2025-01-14 09:37 | Outpatient (CLI) | payer BC, SELFPAY | END 2025-01-14 09:38 | disposition home or self-care (01) | PROVIDERS: Visit Provider Obstetrics & Gynecology | DX: O10.913 Unspecified pre-existing hypertension complicating pregnancy, third trimester (principal); O12.13 Gestational proteinuria, third trimester; Z3A.32 32 weeks gestation of pregnancy | CPT/HCPCS: 82565; 82570; 84156; 84450; 84460; 84520 ==

== ENCOUNTER 2025-01-18 05:00 | Outpatient (CLI) | payer BC, SELFPAY | END 2025-01-18 05:01 | disposition home or self-care (01) | LOC: NFLDREF 01-21 20:19 | PROVIDERS: Visit Provider Obstetrics & Gynecology | DX: O12.13 Gestational proteinuria, third trimester (principal); Z3A.32 32 weeks gestation of pregnancy | CPT/HCPCS: 82570; 84156 ==

== ENCOUNTER 2025-01-28 08:56 | Outpatient (CLI) | payer BC, SELFPAY ==
--- NOTE | 2025-01-28 10:00 | CRLHL7_ITS ---
For Patients: As a result of the Cures Act, medical imaging exams and procedure reports are released immediately into your electronic medical record. You may view this report before your referring provider. If you have questions, please contact your health care provider. OB ULTRASOUND PEDRO by LMP or US: 03/11/2025. GA: 34 w, 0 d. Single. Comparison: 01/14/2025, 11/05/2024, 08/04/2024. INDICATION: Chronic hypertension. TECHNIQUE: Real time grayscale imaging of the fetus was performed. Transabdominal. CERVIX: Not visualized. POSITIONING: Vertex. AMNIOTIC FLUID: 6.9 cm. SDP (N: greater than 2 x 1 cm) BIOPHYSICAL PROFILE: 2: Gross body movements 2: tone 2: Respiratory activity 2: Amniotic fluid SDP (N: greater than 2 x 1 cm) 8/8: Total score PLACENTA: Technique: Transabdominal. PLACENTA POSITION: Posterior. DOPPLER: heart rate: 137 bpm. IMPRESSION: Normal biophysical profile score 8/8. Jatinder Drake M.D. Diagnostic Radiologist [email or web address] FALGUNI/howie denise/Dictated by: Jatinder Drake MD @ 01/29/2025 8:00:00 AM (Electronically Signed)
== END 2025-01-28 08:57 | disposition home or self-care (01) ==
LOC: US 08:57
PROVIDERS: Visit Provider Obstetrics & Gynecology
DX: O10.913 Unspecified pre-existing hypertension complicating pregnancy, third trimester (principal); Z3A.34 34 weeks gestation of pregnancy
CPT/HCPCS: 76819; 82565; 82570; 84156; 84450; 84460; 84520

== ENCOUNTER 2025-01-29 08:18 | Outpatient (CLI) | payer BC, SELFPAY | END 2025-01-29 08:19 | disposition home or self-care (01) | LOC: NFLDREF 02-02 16:54 | PROVIDERS: Visit Provider Obstetrics & Gynecology | DX: O10.913 Unspecified pre-existing hypertension complicating pregnancy, third trimester (principal); Z3A.34 34 weeks gestation of pregnancy | CPT/HCPCS: 82565; 82570; 84156; 84450; 84460; 84520 ==

== ENCOUNTER 2025-02-01 18:34 | Outpatient (CLI) | payer BC, SELFPAY ==
--- NOTE | 2025-02-01 18:21 | CRLHL7_ITS ---
For Patients: As a result of the Century Cures Act, medical imaging exams and procedure reports are released immediately into your electronic medical record. You may view this report before your referring provider. If you have questions, please contact your health care provider. INDICATION: Vaginal clots, check placenta. TECHNIQUE: Ultrasound OB pelvis transabdominal. Real-time modi-scale imaging of the fetus was performed without stress testing. COMPARISON: January 28, 2025. FINDINGS: Sonographic imaging demonstrates a single living intrauterine gestation. Fetus demonstrates a regular cardiac rate of 145 beats per minute. Fetus has a vertex orientation. Amniotic fluid volume single deepest pocket 7.9 cm Posterior placenta. IMPRESSION: Single viable intrauterine . Posterior placenta. No acute abnormality. Dictated by Isai Weir MD @ 02/01/2025 7:45:28 PM (Electronically Signed)
[2025-02-01 18:35] VITALS: BP 139/90; PULSE 110; RESP 20; TEMP 36.6; O2SAT 97
--- NOTE | 2025-02-01 20:57 | W.PM.OBO ---
OB Outpatient HPI History of Present Illness Date Seen: 02/01/25 History of Present Illness: 34 year old at weeks gestation by [], PEDRO , presents with []. [] Meds Home Medications and Allergies Home Medications ?Medication ?Instructions ?Recorded ?Confirmed ?Type 103-folic acid 400 1 tab PO DAILY 06/07/22 02/01/25 History mcg-omeg3 32.5 mg-dha-fish oil chew tablet ( with DHA and Folic Acid) aspirin 81 mg tablet,delayed 81 mg PO QDAY 08/14/24 02/01/25 History release (Adult Low Dose Aspirin) nifedipine 30 mg tablet,extended 30 mg PO BID 01/28/25 02/01/25 History release Allergies Allergy/AdvReac Type Severity Reaction Status Date / Time No Known Allergies Allergy Verified 02/01/25 18:26 [facility] Medical History Female infertility associated with anovulation ?N97.0 - Female infertility associated with anovulation (ICD-10) with history of infertility ?O09.00 - Supervision of with history of infertility, unspecified trimester (ICD-10) Pre-eclampsia affecting , antepartum ?O14.90 - Unspecified pre-eclampsia, unspecified trimester (ICD-10) History of migraine headaches ?Z86.69 - Personal history of other diseases of the nervous system and sense organs (ICD-10) History of hysterosalpingogram ?Z98.890 - Other specified postprocedural states (ICD-10) Surgical History History of breast augmentation (2013) ?Z98.82 - Breast implant status (ICD-10) Family History Father Coronary artery disease Diabetes Aunt Diabetes Family/Other Diabetes Social History Narrative: Non-smoker, quit 2020 - Ivan What is your current living situation?: I presently have a place to live Problems where you live: no known problems In the past 12 months, utilities in danger of being shut off: no In past 12 months, lack of transportation kept you from medical appts, meetings, work, or getting things needed for daily living: no In the past 12 mos, have been you worried that your food would run out before you had money to buy more?: never true In the past 12 mos, the food you bought just didn't last and you didn't have money to buy more?: never true Smoking Status: Never smoker Do you use any of these nicotine containing products: Smokeless Tobacco How often do you have a drink containing alcohol: never AUDIT-C Alcohol total score: 0 Non-prescribed substance use: denies use How often does anyone, including family, friends and others, physically hurt you: never How often does anyone, including family, friends and others, insult or talk down to you: never How often does anyone, including family, friends and others, threaten you with harm: never How often does anyone, including family, friends and others, scream or curse at you: never History History 2 Elective abortions 0 Para 1 Spontaneous abortions 0 Hx # Term Pregnancies 1 Ectopic pregnancies Hx # Pregnancies 0 Multiple births 0 Number of Living Children 1 Past Pregnancies Del. Date GA/Weeks Outcome Route wt Inf Gender Labor Lgth Anesthesia Location Provider Compli 11/12/22 37 live - full term low transverse 7 lb 5 oz Male epidural Avery preeclampsia Delivery Date: 11/12/22 Last Updated by: Yun Ramirez ~ [facility]ING DEPARTMENT, [facility] preeclampsia without severe features, arrest of descent OB - H&P: Exam Physical Exam Vital signs: Temp Pulse Resp BP Pulse Ox 98 F 110 H 20 139/90 H 97 02/01/25 18:35 02/01/25 18:35 02/01/25 18:35 02/01/25 18:35 02/01/25 18:35
--- NOTE | 2025-02-01 21:21 | PC.OBNST ---
NST Note NST Note Start: 02/01/25 18:21 Freq: ONCE Status: Active Protocol: Document 02/01/25 21:18 IRINEO (Rec: 02/01/25 21:21 IRINEO [id number]) NST Note 2 Para (# of births) 1 EDC 03/11/25 Gestational Age In Weeks & Days 34 Weeks & 4 Days High Risk Factors High Blood Pressure - Preexisting Other Complaints Spotting; passed 2 small clots at home with mild cramping. Reactive Yes RN Cristobal Stanford, RN Date 02/01/25 Reactive Yes ALBERT Lomeli, ALBERT Date 02/01/25 OB NST charge Yes Complete NST Note via Write Note Yes The provider's electronic signature indicates the NST is reactive/appropriate for gestational age. *Note to provider: If an addendum is required, open the patient's chart and click on the note under the Nurse/Allied Health tab.
[2025-02-01 23:25] LABS: Basophils Absolute Auto 0.02 K/uL (0.00-0.30); Basophils Percent Auto 0.2 % (0.0-3.0); Eosinophils Absolute Auto 0.16 K/uL (0.00-0.50); Eosinophils Percent Auto 1.5 % (0.0-7.0); Hematocrit 32.9 % (33.0-51.0); Hemoglobin* 11.3 gm/dL (12.0-16.0); Immature Granulocytes Abs Auto 0.09 K/uL (0.00-0.30); Immature Granulocytes Pct Auto 0.8 %; Lymphocytes Percent Auto 13.2 % (20-44); Mean Corpuscular HGB Conc 34 gm/dL (32-36); Mean Corpuscular Hemoglobin 31 pg (26-34); Mean Corpuscular Volume 90 fL (80-100); Neutrophils Percent Auto 78.3 % (42.0-72.0); Platelet Count* 161 K/uL (140-440); Red Blood Count 3.64 m/uL (4.00-5.20); Slide Review Reflex No; White Blood Count* 10.66 K/uL (4.50-11.00)
== END 2025-02-01 20:22 | disposition home or self-care (01) ==
LOC: OB OUT 18:35 → OB 18:45
PROVIDERS: Visit Provider Obstetrics & Gynecology
DX: O10.913 Unspecified pre-existing hypertension complicating pregnancy, third trimester (principal); O46.93 Antepartum hemorrhage, unspecified, third trimester; Z3A.34 34 weeks gestation of pregnancy
CPT/HCPCS: 36415; 59025; 76815; 85025; G0463

== ENCOUNTER 2025-02-05 11:49 | Outpatient (CLI) | payer BC, SELFPAY ==
--- NOTE | 2025-02-05 12:15 | CRLHL7_ITS ---
For Patients: As a result of the Cures Act, medical imaging exams and procedure reports are released immediately into your electronic medical record. You may view this report before your referring provider. If you have questions, please contact your health care provider. PEDRO by US: 03/11/2025. GA: 35w, 1d. Single. INDICATION: Chronic hypertension. CERVIX: Not visualized. POSITIONING: Vertex. AMNIOTIC FLUID: 7.2 cm SDP. BIOPHYSICAL PROFILE: Total score: 8. Gross body movements: 2. tone: 2. Respiratory activity: 2. Amniotic fluid: 2. (SDP N: Increase 2 x 1 cm) PLACENTA: Technique: Transabdominal. PLACENTA POSITION: Posterior. DOPPLER: heart rate: 147 bpm. IMPRESSION: Normal biophysical profile 05/21. Jatinder Drake M.D. Diagnostic Radiologist [email or web address] FALGUNI/bere / bM/Dictated by: Jatinder Drake MD @ 02/05/2025 1:11:00 PM (Electronically Signed)
== END 2025-02-05 11:50 | disposition home or self-care (01) ==
LOC: US 11:49
PROVIDERS: Visit Provider Obstetrics & Gynecology
DX: O10.913 Unspecified pre-existing hypertension complicating pregnancy, third trimester (principal); Z3A.35 35 weeks gestation of pregnancy
CPT/HCPCS: 76819

== ENCOUNTER 2025-02-05 11:54 | Outpatient (CLI) | payer BC, SELFPAY | END 2025-02-05 11:55 | disposition home or self-care (01) | LOC: NFLDREF 02-08 01:40 | PROVIDERS: Visit Provider Obstetrics & Gynecology | DX: O10.913 Unspecified pre-existing hypertension complicating pregnancy, third trimester (principal); O12.13 Gestational proteinuria, third trimester; Z3A.35 35 weeks gestation of pregnancy | CPT/HCPCS: 82565; 82570; 84156; 84450; 84460; 84520 ==

== ENCOUNTER 2025-02-11 08:42 | Outpatient (CLI) | payer BC, SELFPAY ==
[2025-02-12 11:39] LABS: Strep B DNA Probe Negative (Negative)
[2025-02-12 11:57] LABS: Strep B Susceptibility Needed? No
== END 2025-02-11 08:43 | disposition home or self-care (01) ==
LOC: NFLDREF 11:00
PROVIDERS: Visit Provider Obstetrics & Gynecology
DX: O09.93 Supervision of high risk pregnancy, unspecified, third trimester (principal); O10.913 Unspecified pre-existing hypertension complicating pregnancy, third trimester; O12.13 Gestational proteinuria, third trimester; Z3A.36 36 weeks gestation of pregnancy
CPT/HCPCS: 82565; 82570; 84156; 84450; 84460; 84520; 87081; 87653

== ENCOUNTER 2025-02-11 08:45 | Outpatient (CLI) | payer BC, SELFPAY ==
--- NOTE | 2025-02-11 09:15 | CRLHL7_ITS ---
For Patients: As a result of the Cures Act, medical imaging exams and procedure reports are released immediately into your electronic medical record. You may view this report before your referring provider. If you have questions, please contact your health care provider. OB ULTRASOUND PEDRO by LMP or US: 03/11/2025. GA: 36 w, 0 d. Single. Surgery: . Comparison: 02/05/2025, 02/01/2025, 01/28/2025. INDICATION: Pre-existing hypertension. TECHNIQUE: Real time grayscale imaging of the fetus was performed. Transabdominal. CERVIX: Not visualized. POSITIONING: Vertex. AMNIOTIC FLUID: 6.9 cm. SDP (N: greater than 2 x 1 cm) BIOPHYSICAL PROFILE: 2: Gross body movements 2: tone 2: Respiratory activity 2: Amniotic fluid SDP (N: greater than 2 x 1 cm) 8/8: Total score PLACENTA: Technique: Transabdominal. PLACENTA POSITION: Posterior. DOPPLER: heart rate: 145 bpm. BIOMETRY: BPD: 8.9 cm. 35 w, 6 d, 56 percent. HC: 32.1 cm. 36 w, 2 d, 26 percent. AC: 32.8 cm. 36 w, 5 d, 80 percent. FL: 7 cm. 36 w, 0 d, 44 percent. FL/AC ratio: 21.35 percent. HC/AC ratio: 0.98. EFW: 2929 g. Weight: 6 lbs, 7 oz. age by this US: 36 w, 2 d. PEDRO by this US: 03/09/2025. Percentile by PEDRO: 63 percent. IMPRESSION: 1. Normal biophysical profile score 8/8. 2. Sonographic gestational age 36 weeks 2 days and sonographic due date 03/09/2025. Good correlation with dates. Normal interval growth. 3. Estimated weight 63rd percentile. Abdominal circumference 80th percentile. Jatinder Drake M.D. Diagnostic Radiologist [email or web address] FALGUNI/howie denise/Dictated by: Jatinder Drake MD @ 02/11/2025 9:56:00 AM (Electronically Signed)
== END 2025-02-11 08:46 | disposition home or self-care (01) ==
LOC: US 08:46
PROVIDERS: Visit Provider Obstetrics & Gynecology
DX: O10.913 Unspecified pre-existing hypertension complicating pregnancy, third trimester (principal); Z3A.36 36 weeks gestation of pregnancy
CPT/HCPCS: 76816; 76819

== ENCOUNTER 2025-02-18 08:32 | Outpatient (CLI) | payer BC, SELFPAY | END 2025-02-18 08:33 | disposition home or self-care (01) | LOC: NFLDREF 02-28 16:59 | PROVIDERS: Visit Provider Obstetrics & Gynecology | DX: O10.913 Unspecified pre-existing hypertension complicating pregnancy, third trimester (principal); O12.13 Gestational proteinuria, third trimester; Z3A.37 37 weeks gestation of pregnancy | CPT/HCPCS: 82565; 82570; 84156; 84450; 84460; 84520 ==

== ENCOUNTER 2025-02-18 08:37 | Outpatient (CLI) | payer BC, SELFPAY ==
--- NOTE | 2025-02-18 09:15 | CRLHL7_ITS ---
For Patients: As a result of the Century Cures Act, medical imaging exams and procedure reports are released immediately into your electronic medical record. You may view this report before your referring provider. If you have questions, please contact your health care provider. INDICATION: Hypertension TECHNIQUE: Ultrasound OB pelvis transabdominal. Real-time modi-scale imaging of the fetus was performed with color Doppler and spectral Doppler analysis of the umbilical artery without stress testing. COMPARISON: 02/11/2025 FINDINGS: Sonographic imaging demonstrates a single living intrauterine gestation. Fetus demonstrates a regular cardiac rate of 149 beats per minute. Fetus has a cephalic orientation. The placenta lies posterior. Amniotic fluid volume appears normal with a MVP of 5.8 cm. breathing movements, motion, and tone were all observed. IMPRESSION: Single viable intrauterine with a biophysical profile 05/21. Dictated by Paulie Graham MD @ 02/18/2025 9:45:41 AM (Electronically Signed)
== END 2025-02-18 08:38 | disposition home or self-care (01) ==
PROVIDERS: Visit Provider Obstetrics & Gynecology
DX: O10.919 Unspecified pre-existing hypertension complicating pregnancy, unspecified trimester (principal)
CPT/HCPCS: 76819

== ENCOUNTER 2025-02-25 05:44 | Inpatient (IN) | payer BC, SELFPAY ==
[2025-02-25] VITALS (20 sets, daily range): BP systolic 107–132; BP diastolic 56–88; PULSE 58–80; RESP 16–18; TEMP 36.4–36.6; O2SAT 94–100; BMI 32.4
[2025-02-25] MEDS: LACTATED RINGERS 1000 ML 1,000 ML 1200 ML IV (06:22)
--- NOTE | 2025-02-25 06:58 | P.LDBA_ITS ---
Subjective History of Present Illness Date Seen: 02/25/25 Narrative: Patient is being admitted to Labor and Delivery for repeat with bilateral salpingectomy. She is a 34 year old at 38 0/7 weeks gestation. Her full history and physical was dictated by Dr. Avery on 02/11. Please see this for details. Specific Issues/Plans G 2 P 1001 Partner: Ivan. Son: Willem Baby: surprise Awaiting records from IVF clinic in [place] (no records received as of 11/04/24) # IVF level 2 at 20 weeks: referral placed on 09/11/2024 Recommendations per MFM: echo in Nov 2024 US for EFW at 32 and 36 weeks Weekly BPP starting at 36 weeks ( testing completed) Delivery by 39th week. # CHTN on Meds (01/15) * History of preeclampsia without severe features * Continue on low-dose aspirin through remainder of * Preeclampsia labs : BUN & Creat normal. AST 47. ALT normal. Recheck AST on 09/11/2024: 22. P/C ratio 0.38, Total protein 24 hour urine: 508 mg * Repeat 24hr urine on 11/09/24: 620mg * 01/18/2025: 528.7 mg * Nephrology consultation: Seen by [facility]. Home BP monitoring, start antihypertensive if BP 135/85 or higher, * Monthly US for growth starting at 28 weeks (ordered) * Nifedipine ER 30 mg QAM started 01/14. * As of 02/11, increase to 60 mg BID. * Weekly testing/ PreE labs starting at 32 weeks (ordered) * Delivery 37-39 6/7 weeks # History of delivery due to arrest of descent. Given HTN and likely need for IOL early term, patient prefers repeat with bilateral salpingectomy TOLAC consent given to the patient to review: 09/11/24 Chance of successful : 50.2% Scheduling form filled out on 02/05/25 for repeat + bilateral salpingectomy at 37 weeks on 02/25/[address] Avery # Desires sterilization. Private insurance. Repeat with bilateral salpingectomy # advanced maternal age Patient reports she completed pre implantation genetic testing Level 2 ultrasound at 20 weeks: Normal echo 12/10/2024: Normal cardiac anatomy. Normal right and left ventricular size and function. No effusion. # History of social anxiety. Currently stable w/o medication # Spotting at 34 4/7 weeks. Normal US on Center, closed cervix, reactive NST. Recommended pelvic rest. H&P: 02/11 Dr. Avery Imagin11/04/24 LVL 2: Vtx. SDP 4.2cm. Post. placenta no previa. 3 vessel cord. EFW 64%. 2 Ant/sup fibroids 1. 2.3 x 1.1 x 2.0cm, 2. 2.1 x 1.1 x 2.0 cm. No anatomic abnormalities identified. 01/14/25: Cephalic, SDP 6.1 cm, EFW 72%, AC 85%, all growth parameters within normal ranges. 02/11/25: Cephalic, SDP 6.9, EFW 63%, AC 80%, all other growth parameters within normal ranges Flu: 09/11/2024 Covid: Completed, not up-to-date, declines booster Tdap: 01/14/2025 RSV: N/A 32 week mental health: 01/14/2025 Last pap: NIL, neg HPV OB - Problem Based A/P Additional Plan (1) Advanced maternal age (AMA) in : Status: Acute (2) Conceived by in vitro fertilization: Status: Acute (3) H/O section complicating : Status: Acute Delivery/Labor/Induction Plan Plan: Section OB Exam Physical Exam Vital signs: Temp Resp 97.8 F 18 02/25/25 06:57 02/25/25 06:57 Narrative: Physical exam: General: No acute distress Psych: Alert and oriented x3, full affect HEENT: Normocephalic, atraumatic Heart: Regular rate and rhythm, no murmur rub or gallop Lungs: Clear to auscultation bilaterally Abdomen: Soft, nontender, gravid, cephalic lie Lower extremities: 1+ edema in bilateral ankles tracing: Baseline 135, accelerations present, no decelerations, moderate variability
[2025-02-25 07:15] LABS: Blood Urea Nitrogen* 6 mg/dL (5-24); Creatinine* 0.6 mg/dL (0.5-1.5); Est. Creatinine Clearance* 122.51; Estimated Glomerular Filt Rate 120 ml/min
[2025-02-25 07:16] LABS: Alanine Aminotransferase* 21 U/L (4-35); Aspartate Amino Transferase* 32 U/L (12-35)
--- NOTE | 2025-02-25 07:28 | P.ANES_ITS ---
Anesthesia Charges Start Date/Time Anesthesia Start Date: 02/25/25 Anesthesia Start Time: 07:14 Stop Date/Time Anesthesia Stop Date: 02/25/25 Anesthesia Stop Time: 08:46 Coding CPT Codes CPT Codes: ANESTH HIP ARTHROPLASTY - 06270 ([id number]) P2 - PATIENT W/MILD SYST DISEASE, QK - SKIING TEACHER 2-4 CNCRNT ANES PROC, QX - SODA FOUNTAIN CLERK SVC W/ MD MED DIRECTION
--- NOTE | 2025-02-25 07:28 | W.ANESCHARGE ---
Anesthesia Charges Start Date/Time Anesthesia Start Date: 02/25/25 Anesthesia Start Time: 07:14 Stop Date/Time Anesthesia Stop Date: 02/25/25 Anesthesia Stop Time: 08:46 Coding CPT Codes CPT Codes: ANESTH HIP ARTHROPLASTY - 55750 ([id number]) P2 - PATIENT W/MILD SYST DISEASE, QK - DISPATCHER TOW TRUCK 2-4 CNCRNT ANES PROC, QX - METAL BONDING PRESS OPERATOR SVC W/ MD MED DIRECTION
[2025-02-25] MEDS: CEFAZOLIN 1 GM inj 2 GM IVP (07:39)
[2025-02-25] MEDS: LACTATED RINGERS 1000 ML 1,000 ML 100 ML IV (07:41)
[2025-02-25 07:42] LABS: Basophils Absolute Auto 0.02 K/uL (0.00-0.30); Basophils Percent Auto 0.2 % (0.0-3.0); Eosinophils Absolute Auto 0.07 K/uL (0.00-0.50); Eosinophils Percent Auto 0.8 % (0.0-7.0); Hematocrit 34.1 % (33.0-51.0); Hemoglobin* 11.5 gm/dL (12.0-16.0); Immature Granulocytes Abs Auto 0.04 K/uL (0.00-0.30); Immature Granulocytes Pct Auto 0.5 %; Mean Corpuscular HGB Conc 34 gm/dL (32-36); Mean Corpuscular Hemoglobin 31 pg (26-34); Mean Corpuscular Volume 91 fL (80-100); Monocytes Percent Auto 5.8 % (0.0-11.0); Neutrophils Absolute Auto 6.02 K/uL (1.7-7.0); Neutrophils Percent Auto 68.7 % (42.0-72.0); Platelet Count* 169 K/uL (140-440); RDW Coefficient of Variation % 13.4 % (11.5-15.5); Red Blood Count 3.73 m/uL (4.00-5.20); White Blood Count* 8.76 K/uL (4.50-11.00)
[2025-02-25 07:44] LABS: Slide Review Reflex No
[2025-02-25] MEDS: KETOROLAC 30 MG/ML inj IVP ×3 (08:21→20:59)
--- NOTE | 2025-02-25 08:25 | P.OBPRC_ITS ---
Procedure Date of procedure: 02/25/25 Pre-op diagnosis: 38 0/7 weeks' gestation Chronic hypertension requiring medication Previous Undesired fertility Post-op diagnosis: same Procedure Done: Global Will [facility] bill your pro fee for this procedure?: Yes Blood Loss Measurement Type: QBL (580) Bakri Used: No IV fluids (mL): 1,800 Urine Output (mL): 50 Surgeon: Amy Avery MD Dev Ops Engineer: POLLO Lorenzo Anesthesia Type: Spinal Findings: 1. Female infant, cephalic presentation, Apgars 8 & 9, weight 3465 g = 7 lbs 10 oz 2. Normal appearance of uterus, bilateral tubes and ovaries. Procedure Name: Repeat with bilateral salpingectomy Procedure Description: PROCEDURE IN DETAIL: Patient was taken to the operating room with IV running. She received cefazolin in preoperative prophylaxis. Spinal anesthesia was administered. Becerril catheter was inserted. She was prepped and draped in the usual sterile fashion. Anesthesia was tested and found to be adequate. A low-transverse skin incision was made with a scalpel and carried through to the underlying layer of fascia with the scalpel. The subcutaneous fat was dissected off the underlying fascia with Bovie. The fascia was nicked in the midline with a scalpel, and this incision was extended laterally with scissors. The rectus fascia was dissected off the underlying rectus muscles sharply. The rectus muscles were in the midline. Peritoneum was identified and entered bluntly. Bovie was used to widen this opening laterally. Bro O retractor was inserted and tightened down, providing excellent visualization of the lower uterine segment. The bladder reflection was advanced along the lower uterine segment. A bladder flap was created with gentle blunt dissection. Low-transverse uterine incision was made with a scalpel. Incision was widened bluntly. The 's head was grasped through the hysterotomy and delivered with the help of fundal pressure. The remainder of the body delivered without incident. Cord was clamped and cut after 30 seconds. Infant was handed off to attending nurses. The placenta was delivered manually after cord traction did not suffice in delivering the placenta. The uterus was cleaned of all clots and debris with the dry lap pad. The hysterotomy was reapproximated with 0 Vicryl in a running, locked fashion. Second layer of the same suture was used in imbricating fashion along the leftward aspect of the hysterotomy to obtain hemostasis. The uterus was exteriorized. The adnexa were examined and noted to be normal in appearance. Attention was turned to the left fallopian tube. This was grasped in its mid isthmic portion with [place] clamp. The LigaSure exact device was used to divide the tube at the left uterine cornua. Dissection was carried medially to laterally through the mesosalpinx, and the blood supply was divided laterally with the LigaSure exact device and transected. Hemostasis was noted. Attention was then turned to the right fallopian tube, which was removed in a similar fashion. The cul-de-sac was cleansed with a dry laparotomy sponge. The uterus was returned to the abdomen. The pelvic gutters were cleansed with dampened laparotomy sponge, removing any further clots and debris. The Bro O retractor was removed. The hysterotomy was reexamined and found to be hemostatic. The peritoneum was reapproximated with 2 0 Vicryl in a running fashion. The rectus muscles were examined and Bovie used to obtain hemostasis. The fascia was reapproximated with 0 Vicryl in a running fashion. Subcutaneous fat was irrigated and Bovie used on oozing vessels. The subcutaneous fat was reapproximated with 2 0 plain gut suture in an interrupted fashion. The skin was closed with a subcuticular stitch of 4-0 Monocryl. Surgical glue was applied above this. Patient tolerated procedure well was taken to recovery area in stable condition. Complications: None Pathology: specimen obtained, sent to pathology (1. Placenta 2. Bilateral fallop basil tubes) Surgery Debrief Performed: Yes Surgery Debrief Comment: Postoperative debrief was verbalized with OR staff, including a verification of pathology specimens to be sent as described above. Condition: stable Disposition: floor [place] Infant total score - 1 minute: 8 total score - 5 minute: 9
--- NOTE | 2025-02-25 08:35 | SUR.OPER ---
Expressed 200ml red drainage from uterus post procedure. Dr. Avery notified.
--- NOTE | 2025-02-25 08:50 | P.ANES_ITS ---
Anesthesia Charges Start Date/Time Anesthesia Start Date: 02/25/25 Anesthesia Start Time: 07:14 Stop Date/Time Anesthesia Stop Date: 02/25/25 Anesthesia Stop Time: 08:46 Coding CPT Codes CPT Codes: ANESTH CS DELIVERY - 69089 ([id number]) P2 - PATIENT W/MILD SYST DISEASE, QK - CHANNEL DIRECTOR 2-4 CNCRNT ANES PROC, QX - TRANSPORT AIRCREWMAN SVC W/ MD MED DIRECTION
--- NOTE | 2025-02-25 08:50 | W.ANESCHARGE ---
Anesthesia Charges Start Date/Time Anesthesia Start Date: 02/25/25 Anesthesia Start Time: 07:14 Stop Date/Time Anesthesia Stop Date: 02/25/25 Anesthesia Stop Time: 08:46 Coding CPT Codes CPT Codes: ANESTH CS DELIVERY - 24446 ([id number]) P2 - PATIENT W/MILD SYST DISEASE, QK - STUNT DRIVER 2-4 CNCRNT ANES PROC, QX - ASSISTANT PROFESSOR OF COMMUNICATION SVC W/ MD MED DIRECTION
--- NOTE | 2025-02-25 09:25 | P.NB_ITS ---
Nerve Block Nerve Block Time Seen by Provider: 08:35 Date Seen: 02/25/25 Type of block requested by surgeon for post-operative analgesia: TAP Side: bilateral Time out performed: Yes Verification of patient name: Yes Verification of date of : Yes Site marking: site marked Name of person performing procedure: Laureano Continuous monitoring Was continuous monitoring of O2 sat, B/P, air sampling and monitoring, recorded every 15 minutes?: Yes Procedure Checklist: sterile prep, needles and gloves Ultrasound guided. Images saved: Yes Medications given in 5ml increments after negative aspiration: Marcaine %: 0.25 mL: 30 Needle gauge: 20 and Exparel mL: 10 Patient tolerated procedure well: Yes Additional comments: Needle noted between internal oblique and transversus abdominus. Local spread visualized Block Charges Block Charge (with Pro Fee): TAP Bilateral Use of Ultrasound Machine for Block: Yes- US Guidance/pain block
[2025-02-25] MEDS: ACETAMINOPHEN 500 MG TABLET 1000 MG PO ×2 (10:39→16:52)
[2025-02-25] MEDS: LACTATED RINGERS 1000 ML 1,000 ML 125 ML IV (11:15)
[2025-02-25] MEDS: NIFEdipine ER 30 MG TAB PO (20:58)
[2025-02-26] VITALS (8 sets, daily range): BP systolic 125–143; BP diastolic 76–89; PULSE 71–80; RESP 16–18; TEMP 36.4–36.8; O2SAT 96–98
[2025-02-26] MEDS: KETOROLAC 30 MG/ML inj IVP ×3 (02:49→14:24)
[2025-02-26] MEDS: ACETAMINOPHEN 500 MG TABLET 1000 MG PO ×3 (05:11→18:17)
[2025-02-26 07:08] LABS: Basophils Percent Auto 0.2 % (0.0-3.0); Eosinophils Percent Auto 0.7 % (0.0-7.0); Hematocrit 24.8 % (33.0-51.0); Hemoglobin* 8.4 gm/dL (12.0-16.0); Immature Granulocytes Pct Auto 0.3 %; Lymphocytes Percent Auto 19.1 % (20-44); Mean Corpuscular HGB Conc 34 gm/dL (32-36); Mean Corpuscular Hemoglobin 31 pg (26-34); Mean Corpuscular Volume 92 fL (80-100); Neutrophils Percent Auto 74.7 % (42.0-72.0); Platelet Count* 134 K/uL (140-440); RDW Coefficient of Variation % 13.7 % (11.5-15.5); Red Blood Count 2.69 m/uL (4.00-5.20); White Blood Count* 11.49 K/uL (4.50-11.00)
[2025-02-26 07:28] LABS: Slide Review Reflex No
[2025-02-26 07:40] LABS: Alanine Aminotransferase* 17 U/L (4-35); Aspartate Amino Transferase* 29 U/L (12-35); Blood Urea Nitrogen* 8 mg/dL (5-24); Creatinine* 0.7 mg/dL (0.5-1.5); Est. Creatinine Clearance* 105.01; Estimated Glomerular Filt Rate 116 ml/min
[2025-02-26] MEDS: NIFEdipine ER 30 MG TAB PO ×2 (08:45→10:26)
[2025-02-26] MEDS: DOCUSATE SODIUM 100 MG CAPSULE PO (08:45)
--- NOTE | 2025-02-26 12:26 | P.OBPN_ITS ---
OB - PN:Subj Subjective Date Seen: 02/26/25 Narrative: Trinidad is a 34 year old who was admitted for scheduled repeat with bilateral salpingectomy. The procedure was uncomplicated, though it was noted a 200 cc clot was expelled immediately in the OR. She has markus nued to expel regular quarter and golf ball size clots. She has a history of chronic HTN and was on antihypertensives prenatally. The dose was adjusted to Nifedipine ER 30mg BID . With a couple of elevated BPs this morning, the dose was titrated back up to 60mg bid. She is not currently taking any labetalol. It is also noted that her hgb has dropped from 11.5 on admit, to 8.4 this morning with a mild drop in her platelets to 134. She had a qbl of 580 in the OR. She is asymptomatic thus far. The patient feels well.? The pain is well controlled with current medications.? She has no new complaints.? Urinary output is adequate and she is voiding without difficulty.? Has a good appetite, is tolerating a general diet, is passing flatus, and has not had a bowel movement.? Has small amount of rubra lochia and states the clots have been lessening over the last few hours.? She is ambulating well. She is and reports she is planning to only pump and feed by bottle and will formula to supplement. She had low milk supply last and feels this is the right decision for her family this time. ?She agrees to start PO iron for her hemoglobin, but will need a RX to go home with for that. She has not had any CANALES, vision changes or RUQ pain OB - PN: Obj Exam Physical Exam: Vital signs: Temp Pulse Resp BP Pulse Ox O2 Del Method 98.2 F 73 18 129/82 98 Room Air 02/26/25 08:45 02/26/25 08:45 02/26/25 08:45 02/26/25 12:17 02/26/25 08:45 02/26/25 08:45 Narrative: GENERAL APPEARANCE:? normal affect, alert, no distress MOOD:? appropriate ABDOMEN:? soft, non-tender the uterine fundus is At Umbilicus, Midline and is appropriate for the stage of recovery. EXTREMITIES:? normal and mild edema Incision: Healing well, no surrounding erythema, abnormal induration or discharge OB - PN: Obj Data Labs Labs: Laboratory Results - last 24 hr 02/26/25 06:38 WBC 11.49 H RBC 2.69 L Hgb 8.4 L Hct 24.8 L MCV 92 MCH 31 MCHC 34 RDW Coeff of Domitila 13.7 Plt Count 134 L Neut % (Auto) 74.7 H Lymph % (Auto) 19.1 L [place] % (Auto) 5.0 Eos % (Auto) 0.7 Baso % (Auto) 0.2 Neut # (Auto) 8.60 H Lymph # (Auto) 2.20 [place] # (Auto) 0.60 Eos # (Auto) 0.10 Baso # (Auto) 0.00 Abs Immat Gran (auto) 0.00 Imm/Tot Granulo (auto) 0.3 BUN 8 Creatinine 0.7 Estimated Creat Clear 105.01 Estimated GFR 116 AST 29 ALT 17 OB - PN: A/P Delivery Assessment and Plan (1) Status post repeat low transverse section: Status: Acute (2) Chronic hypertension affecting : Status: Acute (3) anemia: Status: Acute Plan Comments: PP day #1 Routine care Continue to monitor bleeding and repeat cbc as indicated Continue 60mg BID Nifedipine ER May see as desired Anticipate discharge 02/27/25 if able
[2025-02-26] MEDS: FERROUS SULFATE 325 MG TABLET PO (14:24)
[2025-02-26] MEDS: IBUPROFEN 600 MG TABLET PO (20:44)
[2025-02-26] MEDS: NIFEdipine ER 30 MG TAB 60 MG PO (20:44)
[2025-02-26 22:40] LABS: Rapid Plasma Reagin (RPR) Non Reactive (Non Reactive)
[2025-02-27] MEDS: ACETAMINOPHEN 500 MG TABLET 1000 MG PO ×2 (01:33→07:15)
[2025-02-27] MEDS: IBUPROFEN 600 MG TABLET PO ×2 (02:42→09:17)
[2025-02-27 04:29] VITALS: BP 111/74; PULSE 79; RESP 12; TEMP 36.7; O2SAT 98
--- NOTE | 2025-02-27 08:24 | P.DS_ITS ---
DS: Providers Provider Date Seen: 02/27/25 Date of admission: 02/25/25 05:44 Primary care physician: Not a Local Provider Admitting Clinician: Amy Avery MD Attending Physician on discharge: Jelly Mcclellan MD Date of Discharge: 02/27/25 DS: Diagnosis Discharge Diagnosis (1) Status post repeat low transverse section: Status: Acute (2) anemia: Status: Acute (3) Chronic hypertension affecting : Status: Acute Exam Narrative: Exam Narrative: GENERAL APPEARANCE: Pleasant, [race], well-groomed woman in no acute distress. VITAL SIGNS: as noted in nursing notes HEAD: Normocephalic, atraumatic. THYROID: no masses, nodularity, tenderness or enlargement. LUNGS: Clear to auscultation bilaterally without wheezes, rales or rhonchi. HEART: Regular rate and rhythm with normal S1 and S2. No gallop, rub or murmur. ABDOMEN: Soft, nontender, nondistended, with normal bowels sounds throughout. Fundus firm at 1cm below the umbilicus in the midline. INCISION: Clean, dry and intact with sutures and skin adhesive gel. EXTREMITIES: No cyanosis, clubbing, or varicosities. 2+ BLE edema to the ankle: normal for . NEUROLOGIC: Normal gait and balance. Normal deep tendon reflexes at bilateral patella 2+/2, equal without clonus. PSYCHIATRIC: alert and oriented x3. Normal speech pattern, eye contact and affect. SKIN: Warm, dry, and well perfused. Good turgor. No lesions, nodules or rashes. Const: Vital Signs, click to edit/add: Vital Signs - 24 hr 02/26/25 08:45 02/26/25 10:25 02/26/25 12:17 Temperature 98.2 F Pulse Rate [Pulse Oximeter] 73 Respiratory Rate 18 Blood Pressure [Ri ght Arm] 143/89 H 126/76 129/82 Pulse Oximetry 98 Oxygen Delivery Me thod Room Air 02/26/25 14:29 02/26/25 16:39 02/26/25 20:40 Temperature 97.6 F 97.8 F 97.9 F Pulse Rate [Pulse Oximeter] 71 73 77 Respiratory Rate 16 18 Blood Pressure [Ri ght Arm] 125/81 126/82 136/84 Pulse Oximetry 96 98 96 Oxygen Delivery Me thod Room Air Room Air Room Air 05/17/25 04:29 Temperature 98.0 F Pulse Rate [Pulse Oximeter] 79 Respiratory Rate 12 Blood Pressure [Ri ght Arm] 111/74 Pulse Oximetry 98 Oxygen Delivery Me thod Room Air OB - DS: Summary Hospital Course Hospital Course: Trinidad is a 34 year old G 2 P 1 now 2 at delivered at 38 and 0/7 weeks gestation that was admitted to the [facility] on 02/25/25 for a scheduled repeat low- transverse with bilateral salpingectomy. She was delivered at 37 weeks gestation due to chronic hypertension well controlled on medication. Currently her blood pressure is under excellent control with nifedipine ER 60 mg b.i.d. She had an uncomplicated delivery. She has significant anemia with a hemoglobin of 8.4. She is asymptomatic. She is on an iron supplement. She delivered a viable female . She is bottle feeding. Considering expressing breast milk by pumping and using formula for supplementation. the patient has done well. Time spent discussing smoking cessation with patient: 3 to 10 minutes Peripartum Data Infant delivery method: Repeat Section Procedures: Procedures Operation Date: 02/25/25 07:15 Actual Procedure Side Surgeon p Repeat Section and Bilateral salpingectomy Amy Avery MD Procedures: tubal ligation/salpingectomy Infant Gender: Female Status at Discharge Functional status at discharge: independent ambulation Overall status at discharge: patient is progressing back to baseline Time Spent with Patient Time attestation: Total time spent providing and/or coordinating discharge services: Time spent: Less than 30 minutes Discharge Plan Discharge Disposition: Home, Self-Care Date of Admission: 02/25/25 05:44 Attending Provider on Discharge: Jelly Mcclellan Primary Care Provider: Provider,Not a Local Condition: Improved Anticipated Discharge Date/Time: 02/27/25 12:00 Discharge Medications: New nifedipine 30 mg Tablet Extended Release 60 mg PO BID Qty: 180 0RF ferrous sulfate 325 mg (65 mg iron) Tablet 325 mg PO Q48H Qty: 1100 0RF docusate sodium 100 mg Capsule 100 mg PO BID PRN (Reason: constipation) Qty: 100 0RF ibuprofen 600 mg Tablet 600 mg PO Q6H PRN (Reason: Pain) Qty: 30 0RF oxycodone 5 mg Tablet 5 mg PO 3XD PRN (Reason: Pain) Qty: 21 0RF Continued with DHA-Folic Acid 400-32.5 mcg-mg tablet,chewable 1 tab PO DAILY Discontinued aspirin [Adult Low Dose Aspirin] 81 mg tablet,delayed release (DR/EC) 81 mg PO QDAY nifedipine 30 mg tablet extended release 30 mg PO BID Qty: 60 0RF labetalol 200 mg tablet 200 mg PO BID Qty: 30 0RF Discharge Orders: Discharge Order (Routine); Ordered 02/27/25 Ordered By: Jelly Mcclellan Patient Education: (DC), Hypertension During (DC) Additional Instructions: ACTIVITY RESTRICTIONS: * Nothing vaginally for 6 weeks: no tampons/intercourse * No driving while taking narcotic pain medication during the day. 1-2 weeks. * Lifting restriction: Maximum of 20 pounds for 6 weeks. * High impact or core exercises: 6 weeks. * Submerge the incision in water (bath/pool/moreno): 2 weeks. * Off of work/school for a minimum of 8 weeks NO RESTRICTIONS for: * Walking * Going up/down stairs * Showering * Being a passenger in a motor vehicle. Symptoms to report to doctor: -Bleeding that saturates more than one pad per hour ?-Passing clots larger than the size of a golf ball ?-Pain not relieved by prescribed medication ?-Fever above 100.4 degrees Fahrenheit ?-A foul vaginal odor ?-Difficulty in emotions, mood and functions ?-Thoughts of hurting yourself and/or ?-Painful, reddened area in your breast ?-Any drainage, redness or tenderness in your IV/epidural site ?-Severe headache that doesn't improve after taking medications ?-Changes in vision, including temporary loss of vision, blurred vision, and/or light sensitivity ?-Upper abdominal pain (usually under ribs on the right side) ?-Decrease in urination or painful, frequent urinating ?-Chest pain ?-Shortness of breath ?-Tenderness or pain with redness and/swelling in the calf(s) of your leg For Blood Pressure: Check your blood pressure at home once a day. Contact the clinic at if your BP >/= 140/90 or </= 90/60 to get recommendations on medication management Go to the Emergency Department if your BP is >/= 160/110. Follow-up: 1. 2 week visit: Screen for anxiety/depression, incision check and answer questions regarding self and infant care. 2. A 6 week visit for an annual physical exam. consultation services are available to all mothers and babies for the first year after delivery.? To make an appointment, please call [phone]. Activity Level: Other Discharge Diet: Regular Follow Up Appointments: [facility] [Outside] Provider,Not a Local [Primary Care Provider] - Forms: [employer] Info Instructions
[2025-02-27] MEDS: DOCUSATE SODIUM 100 MG CAPSULE PO (09:17)
[2025-02-27] MEDS: NIFEdipine ER 30 MG TAB 60 MG PO (09:17)
[2025-02-27 09:29] VITALS: BP 137/84; PULSE 77; RESP 16; TEMP 36.6; O2SAT 98
== END 2025-02-27 12:55 | disposition home or self-care (01) | DRG 540 ==
PROVIDERS: Obstetrics & Gynecology; Admitting Provider Obstetrics & Gynecology; Visit Provider Obstetrics & Gynecology
PROC: 10D00Z1 Extraction of Products of Conception, Low, Open Approach (ICD-10-PCS; CPT 59514; principal; 2025-02-25 07:15)
DX: O34.211 Maternal care for low transverse scar from previous cesarean delivery (principal); O10.92 Unspecified pre-existing hypertension complicating childbirth; Z30.2 Encounter for sterilization; O90.81 Anemia of the puerperium; D62 Acute posthemorrhagic anemia; G89.18 Other acute postprocedural pain; Z37.0 Single live birth; Z3A.38 38 weeks gestation of pregnancy
CPT/HCPCS: 01214; 01961; 36415; 64488; 76942; 82565; 84450; 84460; 84520; 85018; 85025; 85027; 86592; 86850; 86900; 86901; 88302; 88307; A4314; A9270; J0665; J0666; J0690; J1100; J1885; J2371; J2405; J2590; J7120

== ENCOUNTER 2025-04-08 11:14 | Outpatient (CLI) | payer BC, SELFPAY | END 2025-04-08 11:15 | disposition home or self-care (01) | PROVIDERS: Visit Provider Physician Assistant | DX: I10 Essential (primary) hypertension (principal) | CPT/HCPCS: 80053; 82570; 84156 ==